=== PATIENT | male | born 1990 | race African-American/Black ===

== ENCOUNTER 2020-08-15 10:29 | Outpatient (REF) | payer BC, SELFPAY | END 2020-08-15 10:30 | disposition home or self-care (01) | LOC: HO.LAB 10:29 | PROVIDERS: Visit Provider Internal Medicine | DX: Z20.828 Contact with and (suspected) exposure to other viral communicable diseases (principal) | CPT/HCPCS: C9803; U0003 ==

== ENCOUNTER 2022-10-03 16:10 | Emergency (ER) | payer OTHER, SELFPAY ==
--- NOTE | ~2022-10-03 | XR_ITS ---
EXAMINATION: XR HAND, LEFT CLINICAL INFORMATION: Wrist pain. Question fracture. COMPARISON: None TECHNIQUE: PA, lateral, and oblique views of the left hand. FINDINGS: No fractures, malalignment, arthropathic changes or soft tissue emphysematous changes visualized. No definitive soft tissue inflammatory changes noted. No abnormalities of the radiocarpal or carpal regions are noted though these areas are viewed with obliquity given that images are dedicated hand radiographs. XR/XR hand LT 2V IMPRESSION: Normal radiographs of the left hand and visualized left wrist. If clinical concern is present specific to the wrist, consider additional dedicated radiographs of the wrist.
[2022-10-03 16:27] VITALS: BP 139/87; PULSE 58; RESP 18; TEMP 36.6; O2SAT 98; BMI 24.1
--- NOTE | 2022-10-03 16:28 | ED_ITS ---
HPI - General Adult General Chief complaint: Extremity Injury, Upper <THOMAS De La Rosa - Last Filed: 10/03/22 18:46> Stated complaint: pain in left wrist <THOMAS De La Rosa - Last Filed: 10/03/22 18:46> Time Seen by Provider: 10/03/22 17:12 <THOMAS De La Rosa - Last Filed: 10/03/22 18:46> Source: patient <Joseph Berry MD - Last Filed: 10/03/22 17:32> Mode of arrival: ambulatory <Joseph Berry MD - Last Filed: 10/03/22 17:32> Limitations: no limitations <Joseph Berry MD - Last Filed: 10/03/22 17:32> History of Present Illness HPI narrative: Patient complaining of left wrist pain for over 2 months says that at work he lift boxes. No direct injury no swelling no paresthesias <Joseph Berry MD - Last Filed: 10/03/22 17:32> Related Data Home medications: Previous Rx's Medication Instructions Recorded ibuprofen 600 mg tablet 600 mg PO Q6H PRN fever or pain 10/03/22 #30 tabs <THOMAS De La Rosa - Last Filed: 10/03/22 18:46> Allergies/adverse reactions: Allergies Allergy/AdvReac Type Severity Reaction Status Date / Time amoxicillin [AMOXICILLIN] Allergy Mild RASH Verified 10/03/22 16:26 <THOMAS De La Rosa - Last Filed: 10/03/22 18:46> Review of Systems Review of Systems: Yes all other systems are reviewed and are negative <Joseph Berry MD - Last Filed: 10/03/22 17:32> [facility] Social History Social History: Social History Advance Directives: No Advance Directives Information Provided: Yes <THOMAS De La Rosa - Last Filed: 10/03/22 18:46> Physical Exam ED Vital Signs: Vital Signs - 24 hr 10/03/22 16:27 Temperature 98 F Pulse Rate 58 Respiratory Rate 18 Blood Pressure 139/87 Pulse Oximetry 98 Oxygen Delivery Method Room Air BMI result Body Mass Index 24.1 <THOMAS De La Rosa - Last Filed: 10/03/22 18:46> Vital Signs - 24 hr 10/03/22 16:27 Temperature 98 F Pulse Rate 58 Respiratory Rate 18 Blood Pressure 139/87 Pulse Oximetry 98 Oxygen Delivery Method Room Air BMI result Body Mass Index 24.1 <Joseph Berry MD - Last Filed: 10/03/22 17:32> Extrem Hand/finger images: 1. Tenderness on the flexor aspect of the wrist increases on palmar flexion Tinel and Phalen sign negative <THOMAS De La Rosa - Last Filed: 10/03/22 18:46> 1. Tenderness on the flexor aspect of the wrist increases on palmar flexion Tinel and Phalen sign negative <Joseph Berry MD - Last Filed: 10/03/22 17:32> Course Course Course Narrative: RME: LEFt wrist pain for one month after trauma at work. wrist was never evaluated. motor, neuro, and vascualr exam is intact on exam. xray ordered <THOMAS De La Rosa - Last Filed: 10/03/22 18:46> Medical Decision Making Medical Decision Making MDM Narrative: X-ray negative clinically tendinitis from overusing his left hand advised to wear the splint ibuprofen for pain <Joseph Berry MD - Last Filed: 10/03/22 17:32> Discharge Plan Discharge Clinical Impression: Sprain and strain of wrist <THOMAS De La Rosa - Last Filed: 10/03/22 18:46> Patient Disposition: Home, Self-Care <THOMAS De La Rosa Last Filed: 10/03/22 18:46> Instructions: Wrist Sprain (ED) <THOMAS De La Rosa Last Filed: 10/03/22 18:46> Additional Instructions: Wear wrist splint for support Avoid lifting heavy boxes Ibuprofen for pain Follow with PCP as needed <THOMAS De La Rosa Last Filed: 10/03/22 18:46> Prescriptions: New ibuprofen 600 mg tablet 600 mg PO Q6H PRN (Reason: fever or pain) Qty: 30 0RF <THOMAS De La Rosa Last Filed: 10/03/22 18:46> Stand Alone Forms: Work/School Release <THOMAS De La Rosa - Last Filed: 10/03/22 18:46> Interventions: ED Discharge Assessment Last Done: 10/03/22 17:42 <THOMAS De La Rosa - Last Filed: 10/03/22 18:46> Discharge Date/Time: 10/03/22 17:42 <THOMAS De La Rosa - Last Filed: 10/03/22 18:46>
--- NOTE | 2022-10-03 17:27 | PC.NURSE ---
wrist splint placed on left wrist pt verbalizes comfort.
== END 2022-10-03 17:42 | disposition home or self-care (01) ==
PROVIDERS: Emergency Provider Internal Medicine
DX: S63.501A Unspecified sprain of right wrist, initial encounter (principal); X50.0XXA Overexertion from strenuous movement or load, initial encounter; X50.9XXA Other and unspecified overexertion or strenuous movements or postures, initial encounter; Y93.9 Activity, unspecified; Y92.9 Unspecified place or not applicable; Y99.0 Civilian activity done for income or pay
CPT/HCPCS: 73120; 99282; 99283

== ENCOUNTER 2022-12-22 14:04 | Emergency (ER) | payer OTHER, SELFPAY ==
--- NOTE | 2022-12-22 | ECG_ITS ---
Test Reason : SYNCOPE Blood Pressure : / mmHG Vent. Rate : 060 BPM Atrial Rate : 060 BPM P-R Int : 188 ms QRS Dur : 092 ms QT Int : 392 ms P-R-T Axes : 048 035 016 degrees QTc Int : 392 ms Normal sinus rhythm Normal ECG When compared with ECG of 13-MAR-2019 00:22, No significant change was found Referred By: Generic ED Physician Electronically Signed By:PETER CHEW MD
[2022-12-22 14:13] VITALS: BP 146/90; PULSE 63; RESP 18; TEMP 36.5; O2SAT 99; BMI 24.4
--- NOTE | 2022-12-22 14:42 | ED.SYNCOPE ---
HPI - Syncope General Chief Complaint: Syncope Stated Complaint: Syncopal episode per EMS Time Seen by Provider: 12/22/22 14:25 Source: patient History of Present Illness HPI narrative: Patient is in the [employer] and had a syncopal event today. 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 He states he felt very hot in his face hands and feet. Coworkers lower him into a chair and then onto the ground. He denies any pain or injuries from the event. Apparently with a relatively short loss of consciousness her bystanders. Currently he has no complaints. 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 He denies palpitations. No headaches No focal weakness No recent changes to medication. Stressors include being in the [employer] and significant workload where he states he has only slept 2-3 hours at night for the last 3-4 days. No recent illnesses. She has 1 prior episode of syncope when he was working at [employer]. He went to [facility] and had a full workup which was apparently negative. They attributed that episode the dehydration and is similar setting of many hours worked daily. No history of dysrhythmias. No family history of sudden of which he is aware. She only has a history of asthma for which he uses Advair or butyrate all on rare occasion. No history of hypertension or cardiac disease. No history of diabetes Related Data Previous Rx's Medication Instructions Recorded ibuprofen 600 mg tablet 600 mg PO Q6H PRN fever or pain 10/03/22 #30 tabs Allergies Allergy/AdvReac Type Severity Reaction Status Date / Time amoxicillin [AMOXICILLIN] Allergy Mild RASH Verified 10/03/22 16:26 Review of Systems Constitutional: Comments: No fever chills or malaise Eyes: Comments: No vision changes Cardiovascular: Comments: . Syncope as mention. No palpitations or chest pain Respiratory: Comments: No dyspnea Gastrointestinal: Comments: And no abdominal pain. He does report nausea prior to the syncopal event Musculoskeletal: Comments: No calf pain or pedal edema Neurologic: Comments: No focal weakness PMFSH Social History Social History Advance Directives: No Advance Directives Information Provided: No Physical Exam Vital Signs: Vital Signs: Last Vital Signs Temp 97.7 F 12/22/22 14:13 Pulse 63 12/22/22 14:13 Resp 18 12/22/22 14:13 BP 146/90 H 12/22/22 14:13 Pulse Ox 99 12/22/22 14:13 O2 Del Method Room Air 12/22/22 14:13 BMI result Body Mass Index 24.4 Const: Other: Awake alert, no acute distress. Vital signs stable with mild hypertension Eyes: Other: Pupils equal round reactive to light, extraocular muscles intact Neck: Other: Supple, full range of motion Chest: Other: Small nontender Resp: Other: Clear and equal bilaterally without wheezes rales or rhonchi Cardio: Other: Regular rate and rhythm without murmurs rubs or gallops GI: Other: Soft nontender nondistended, no pulsatile masses Skin: Other: Warm and dry without rash Neuro: Other: Nonfocal neuro exam Extrem: Other: No calf tenderness or pedal edema Medical Decision Making Medical Decision Making MDM Narrative: Otherwise healthy patient with syncopal episode prior to arrival. Potential etiologies include vasovagal syncope her which patient had consistent prodromal symptoms. Dysrhythmias Hypotension secondary to other cause IHSS For seizure EKG is normal. Patient is on a nurse monitoring in the emergency department with normal sinus rhythm in the 60s without evidence of tachy or Tim dysrhythmia. 16:22. Lab work is largely unremarkable. CBC is normal. Chemistries are normal Transaminases show an AST of 50 but ALT is normal at 37. Total bilirubin is normal. Likely incidental finding but will have patient follow-up with PCP for repeat lab draw in the next 1-2 months. He follow-up with Cardiology as this is patient's 2nd syncopal episode. In the meantime he has had no exercise intolerance or exercise related issues. He is safe to return to full duty and training Lab Data 12/22/22 14:46 12/22/22 14:46 Labs: Lab Results 12/22/22 12/22/22 12/22/22 Range/Units 14:46 14:46 14:46 WBC 5.6 (4.8-10.8) X10*3/uL RBC 4.51 L (4.60-5.80) X10*6/uL Hgb 13.4 L (14.0-18.0) g/dl Hct 40.6 L (42.0-52.0) % MCV 90.0 (80.0-98.0) fL MCH 29.7 (27.0-33.0) pg MCHC 33.0 (31.0-36.0) g/dl RDW 12.1 (11.0-16.0) % Plt Count 233 (160-400) X10*3/uL MPV 11.5 (9.4-12.4) fL Immature Gran % (Auto) 0.0 (0.0-0.4) % Neut % (Auto) 42.5 L (45-73) % Lymph % (Auto) 38.5 (20-40) % Kendall % (Auto) 11.9 H (2-11) % Eos % (Auto) 5.9 H (0-4) % Baso % (Auto) 1.2 (0-2) % Lymph # (Auto) 2.2 (1.2-4.9) X10*3/uL Kendall # (Auto) 0.7 (0.1-1.2) X10*3/uL Eos # (Auto) 0.3 (0.0-0.4) X10*3/uL Baso # (Auto) 0.1 (0.0-0.2) X10*3/uL Abs Immat Gran (auto) 0.00 (0.00-0.03) X10*3/uL Absolute Neuts (auto) 2.4 (2.0-8.3) x10*3/uL Absolute Nucleated RBC 0.000 (0.0-0.012) X10*3/uL Nucleated RBC % (auto) 0.0 (0.0-0.2) /100WBC D-Dimer High Sensitivty < 150 NG/ML Sodium 142 (135-145) mmol/L Potassium 3.6 (3.3-5.1) mmol/L Chloride 109 H (96-108) mmol/L Carbon Dioxide 25 (22-29) mmol/L Anion Gap 12 (12-20) BUN 12 (9-16) mg/dL Creatinine 0.93 (0.5-1.4) mg/dL Estim Creat Clear Calc 131.2 Estimated GFR > 60 Random Glucose 75 (60-115) mg/dL Calcium 8.7 (8.4-10.2) mg/dL Total Bilirubin 0.4 (0.0-1.0) mg/dL AST 50 H (5-37) U/L ALT 37 (0-40) U/L Alkaline Phosphatase 58 (39-117) U/L Troponin I High Sens (<3.5-35.0) ng/L Total Protein 6.8 (6.5-8.0) g/dL Albumin 4.1 (3.5-5.0) g/dL 12/22/22 Range/Units 14:46 WBC (4.8-10.8) X10*3/uL RBC (4.60-5.80) X10*6/uL Hgb (14.0-18.0) g/dl Hct (42.0-52.0) % MCV (80.0-98.0) fL MCH (27.0-33.0) pg MCHC (31.0-36.0) g/dl RDW (11.0-16.0) % Plt Count (160-400) X10*3/uL MPV (9.4-12.4) fL Immature Gran % (Auto) (0.0-0.4) % Neut % (Auto) (45-73) % Lymph % (Auto) (20-40) % Kendall % (Auto) (2-11) % Eos % (Auto) (0-4) % Baso % (Auto) (0-2) % Lymph # (Auto) (1.2-4.9) X10*3/uL Kendall # (Auto) (0.1-1.2) X10*3/uL Eos # (Auto) (0.0-0.4) X10*3/uL Baso # (Auto) (0.0-0.2) X10*3/uL Abs Immat Gran (auto) (0.00-0.03) X10*3/uL Absolute Neuts (auto) (2.0-8.3) x10*3/uL Absolute Nucleated RBC (0.0-0.012) X10*3/uL Nucleated RBC % (auto) (0.0-0.2) /100WBC D-Dimer High Sensitivty NG/ML Sodium (135-145) mmol/L Potassium (3.3-5.1) mmol/L Chloride (96-108) mmol/L Carbon Dioxide (22-29) mmol/L Anion Gap (12-20) BUN (9-16) mg/dL Creatinine (0.5-1.4) mg/dL Estim Creat Clear Calc Estimated GFR Random Glucose (60-115) mg/dL Calcium (8.4-10.2) mg/dL Total Bilirubin (0.0-1.0) mg/dL AST (5-37) U/L ALT (0-40) U/L Alkaline Phosphatase (39-117) U/L Troponin I High Sens < 2.7 (<3.5-35.0) ng/L Total Protein (6.5-8.0) g/dL Albumin (3.5-5.0) g/dL Discharge Plan Discharge Clinical Impression: Vasovagal syncope Patient Disposition: Home, Self-Care Instructions: Syncope (ED) Additional Instructions: Your workup in the emergency department was very reassuring. Follow-up with Cardiology, Dr. Meneses, see contact information and call the office tomorrow for follow-up appointment. Follow-up with your PCP to follow up on your lab work. Your lab work here was essentially normal but 1 liver enzyme was mildly elevated which is probably an incidental finding and temporary. But I recommend you have repeat blood work sometime in the next several months. 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 Prescriptions: No Action ibuprofen 600 mg tablet 600 mg PO Q6H PRN (Reason: fever or pain) Qty: 30 0RF
[2022-12-22 15:01] LABS: MANUAL DIFF FLAG NO
[2022-12-22 15:02] LABS: Basophils Absolute Auto 0.1 X10*3/uL (0.0-0.2); Basophils Percent Auto 1.2 % (0-2); Eosinophils Absolute Auto 0.3 X10*3/uL (0.0-0.4); Eosinophils Percent Auto 5.9 % (0-4); Hematocrit 40.6 % (42.0-52.0); Hemoglobin 13.4 g/dl (14.0-18.0); Lymphocytes Absolute Auto 2.2 X10*3/uL (1.2-4.9); Lymphocytes Percent Auto 38.5 % (20-40); Mean Corpuscular Hemoglobin 29.7 pg (27.0-33.0); Mean Platelet Volume 11.5 fL (9.4-12.4); Monocytes Absolute Auto 0.7 X10*3/uL (0.1-1.2); Monocytes Percent Auto 11.9 % (2-11); Neutrophils Absolute Auto 2.4 x10*3/uL (2.0-8.3); Neutrophils Percent Auto 42.5 % (45-73); Platelet Count 233 X10*3/uL (160-400); Red Blood Count 4.51 X10*6/uL (4.60-5.80); Red Cell Distribution Width 12.1 % (11.0-16.0); White Blood Count 5.6 X10*3/uL (4.8-10.8)
[2022-12-22 15:19] LABS: Alanine Aminotransferase 37 U/L (0-40); Albumin Level 4.1 g/dL (3.5-5.0); Alkaline Phosphatase 58 U/L (39-117); Anion Gap 12 (12-20); Aspartate Amino Transferase 50 U/L (5-37); Bilirubin Total 0.4 mg/dL (0.0-1.0); Blood Urea Nitrogen 12 mg/dL (9-16); Calcium 8.7 mg/dL (8.4-10.2); Carbon Dioxide 25 mmol/L (22-29); Chloride 109 mmol/L (96-108); Creatinine Clr Calc Pharmacy 131.2; Estimated Glomerular Filt Rate > 60; Glucose Random 75 mg/dL (60-115); Potassium 3.6 mmol/L (3.3-5.1); Sodium 142 mmol/L (135-145); Total Protein 6.8 g/dL (6.5-8.0)
[2022-12-22 15:29] LABS: Troponin-I High Sensitivity < 2.7 ng/L (<3.5-35.0)
[2022-12-22 15:31] LABS: D Dimer High Sensitivity < 150 NG/ML
== END 2022-12-22 16:41 | disposition home or self-care (01) ==
PROVIDERS: Emergency Provider Emergency Medicine
DX: R55 Syncope and collapse (principal)
CPT/HCPCS: 36415; 80053; 84484; 85025; 85379; 93005; 99283

== ENCOUNTER 2022-12-24 03:56 | Emergency (ER) | payer OTHER, SELFPAY ==
--- NOTE | ~2022-12-24 | XR_ITS ---
EXAMINATION: XR foot RT min 3V, XR ankle RT min 3V CLINICAL INFORMATION: Reason for Exam injury COMPARISON: None. TECHNIQUE: AP, oblique and lateral views of the right ankle and foot (5 images) FINDINGS: No acute fracture or dislocation. Ankle mortise is congruent. Talar dome intact. No suspicious osseous lesions. Soft tissues unremarkable. XR/XR ankle RT min 3V IMPRESSION: No acute fracture or dislocation.
--- NOTE | ~2022-12-24 | XR_ITS ---
EXAMINATION: XR foot RT min 3V, XR ankle RT min 3V CLINICAL INFORMATION: Reason for Exam injury COMPARISON: None. TECHNIQUE: AP, oblique and lateral views of the right ankle and foot (5 images) FINDINGS: No acute fracture or dislocation. Ankle mortise is congruent. Talar dome intact. No suspicious osseous lesions. Soft tissues unremarkable. XR/XR foot RT min 3V IMPRESSION: No acute fracture or dislocation.
[2022-12-24 04:11] VITALS: BP 134/89; PULSE 60; RESP 18; TEMP 36.3; O2SAT 97; BMI 25.2
[2022-12-24 04:28] VITALS: BP 142/92; PULSE 61; RESP 17; TEMP 36.6; O2SAT 97
[2022-12-24 06:15] VITALS: BP 126/86; PULSE 72; RESP 17; TEMP 36.7; O2SAT 100
--- NOTE | 2022-12-24 07:03 | ED_ITS ---
HPI - Extremity Injury (Lower) General Chief Complaint: Extremity Injury, Lower Stated Complaint: R Ankle Pain Time Seen by Provider: 12/24/22 06:55 Source: patient Mode of arrival: ambulatory Limitations: no limitations History of Present Illness HPI Narrative: 32-year-old male who presents emergency department for evaluation of pain in his right Achilles tendon region. 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 He states that a pallet robson struck his right leg and his right leg was caught between a robson and palate. He states that he recovered from this injury. Patient is currently in a today at in the [employer]. He states that he was doing [employer] and ran a mi and a half yesterday. He did not have any injury but he did notice swelling to the medial aspect of his Achilles tendon. When he woke up this morning he states that he is having difficulty walking secondary to pain in his Achilles tendon. Related Data Previous Rx's Medication Instructions Recorded ibuprofen 600 mg tablet 600 mg PO Q6H PRN fever or pain 10/03/22 #30 tabs acetaminophen 500 mg tablet 1,000 mg PO Q6H PRN fever or pain 12/24/22 (Tylenol Extra Strength) #20 tabs ibuprofen 400 mg tablet 400 mg PO TID PRN fever or pain 12/24/22 #30 tabs Allergies Allergy/AdvReac Type Severity Reaction Status Date / Time amoxicillin [AMOXICILLIN] Allergy Mild RASH Verified 10/03/22 16:26 Review of Systems Review of Systems: Yes all other systems are reviewed and are negative PMFSH Social History Social History Advance Directives: No Advance Directives Information Provided: Yes Physical Exam Vital Signs: Vital Signs: Last Vital Signs Temp 98.0 F 12/24/22 06:15 Pulse 72 12/24/22 06:15 Resp 17 12/24/22 06:15 BP 126/86 12/24/22 06:15 Pulse Ox 100 12/24/22 06:15 O2 Del Method Room Air 12/24/22 06:15 BMI result Body Mass Index 25.2 Vital signs normal General: Awake, alert, male patient, very pleasant cooperative, no distress Right lower extremity exam: Patient has no tenderness palpation of his foot or medial lateral malleolus. There is no joint effusion, there is no ecchymosis or erythema. The patient's Achilles tendon is intact, he does have tenderness with palpation of the did aspect of the tendon, there is no tenderness palpation of the right calf. There is no swelling or ecchymosis of the calf for tendon noted Medical Decision Making Medical Decision Making MDM Narrative: 32-year-old male who presents emergency department for evaluation of pain in his right ankle/Achilles tendon area. 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 He also participated in [employer] physical training. He was unable walk this morning secondary to pain. Examination did reveal tenderness palpation of the right Achilles tendon without any other findings. X-rays of his right ankle and foot revealed no acute fracture. Patient's presentation is consistent with a sprain of the right Achilles tendon. The patient was placed in a walking boot given crutches. He was prescribed Tylenol and ibuprofen. Patient was advised to rest his injured Achilles tendon for 3 days and if he is pain for you can return to the [employer] on 12/27/2022. Differential Diagnosis Differential diagnosis includes was not limited to Achilles tendon sprain, Achilles tendon tear, ankle sprain, foot sprain, ankle fracture foot fracture, Radiology Impression Discussion of test interpretation with radiology: I have reviewed the radiologist's reading. Radiologist Impression: XR ankle RT min 3V IMPRESSION: No acute fracture or dislocation. Dictated By:Jefferson Day MD XR foot RT min 3V IMPRESSION: No acute fracture or dislocation. Dictated By:Jefferson Day MD Discharge Plan Discharge Clinical Impression: Strain of right Achilles tendon, initial encounter Patient Disposition: Home, Self-Care Instructions: R.I.C.E. Treatment (ED) Additional Instructions: The x-ray of your right foot and right ankle revealed no broken bones Your examination is consistent with a strain of your Achilles tendon. Wear the walking boot in use the crutches to relieve pressure on your right foot and ankle for the next 3 days. Follow the RICE instruction Take ibuprofen 200 mg pills, 2 pills every 6 hours as needed for pain. Take Tylenol (acetaminophen) 500 mg pills, 2 pills every 6 hours as needed for pain. Follow-up with your doctor in 2 days. Please return to the emergency department if your symptoms get worse or if you develop any symptoms that are concerning to you. Prescriptions: New acetaminophen [Tylenol Extra Strength] 500 mg tablet 1,000 mg PO Q6H PRN (Reason: fever or pain) Qty: 20 0RF ibuprofen 400 mg tablet 400 mg PO TID PRN (Reason: fever or pain) Qty: 30 0RF No Action ibuprofen 600 mg tablet 600 mg PO Q6H PRN (Reason: fever or pain) Qty: 30 0RF Stand Alone Forms: Work/School Release
[2022-12-24 07:19] VITALS: BP 132/86; PULSE 57; RESP 14; O2SAT 95
[2022-12-24] MEDS: Ibuprofen 400 MG TABLET PO (07:36)
== END 2022-12-24 07:44 | disposition home or self-care (01) ==
PROVIDERS: Emergency Provider Emergency Medicine Emergency Medical Services
DX: S86.011A Strain of right Achilles tendon, initial encounter (principal); M79.671 Pain in right foot; X50.0XXA Overexertion from strenuous movement or load, initial encounter; Y93.9 Activity, unspecified; Y92.9 Unspecified place or not applicable; Y99.0 Civilian activity done for income or pay; Z79.899 Other long term (current) drug therapy
CPT/HCPCS: 73610; 73630; 99283

== ENCOUNTER → 2022-12-27 12:30 | Outpatient (BNVA) | payer OTHER, SELFPAY | PROVIDERS: Visit Provider Physician Assistant Medical | DX: S86.011A Strain of right Achilles tendon, initial encounter (principal); Y93.02 Activity, running | CPT/HCPCS: 99202 ==

== ENCOUNTER 2023-04-02 20:06 | Emergency (ER) | payer OTHER, SELFPAY ==
--- NOTE | ~2023-04-02 | XR_ITS ---
EXAMINATION: XR LUMBAR SPINE CLINICAL INFORMATION: Low back pain, spine tenderness COMPARISON: 05/29/2013 TECHNIQUE: Three views of the lumbar spine. FINDINGS: There is transitional segment anatomy with partial lumbarization of S1. There is anatomic alignment of the lumbar vertebral bodies and posterior elements. Vertebral body heights are maintained. There is disc space narrowing at L5-S1 with associated osteophytosis. Remaining intervertebral disc spaces are maintained. No acute fracture is seen. Sacroiliac joints appear intact. XR/XR lumbar spine 2-3V IMPRESSION: No acute findings identified. Degenerative changes at L5-S1.
[2023-04-02 20:27] VITALS: BP 145/100; PULSE 75; RESP 18; TEMP 36.6; O2SAT 95; BMI 25.7
--- NOTE | 2023-04-02 20:28 | ED.BACK ---
HPI - Back Pain/Injury General Chief Complaint: Back Pain/Injury Stated Complaint: lower back pain/cant sit Time Seen by Provider: 04/02/23 21:45 Source: patient Mode of arrival: ambulatory Limitations: no limitations History of Present Illness HPI Narrative: 33 yo male with history of asthma and eczema who presents to the ER for evaluation of low back pain for the last 3 days. 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 Started when he was in the truck for 14 hours 3 days ago. Difficulty standing, sitting, walking. Intermittent numbness and weakness to LLE. No urinary symptoms, saddle paresthsias. No urinary or stool incontinence, able to ambulate with difficulty due to pain but no weakness. Patient had chronic low back pain but not that severe. Related Data Previous Rx's Medication Instructions Recorded ibuprofen 600 mg tablet 600 mg PO Q6H PRN fever or pain 10/03/22 #30 tabs acetaminophen 500 mg tablet 1,000 mg PO Q6H PRN fever or pain 12/24/22 (Tylenol Extra Strength) #20 tabs ibuprofen 400 mg tablet 400 mg PO TID PRN fever or pain 12/24/22 #30 tabs cyclobenzaprine 10 mg tablet 10 mg PO BEDTIME PRN muscle spasm 04/02/23 #10 tabs ibuprofen 600 mg tablet 600 mg PO Q8H PRN pain #10 tabs 04/02/23 oxycodone 5 mg tablet 5 mg PO BID PRN pain #10 tabs 04/02/23 Allergies Allergy/AdvReac Type Severity Reaction Status Date / Time amoxicillin [AMOXICILLIN] Allergy Mild RASH Verified 10/03/22 16:26 Review of Systems Review of Systems: All other systems are reviewed and are negative Constitutional: Reports as per HPI and Reports no additional constitutional complaints Eyes: Reports as per HPI and Reports no additional eye complaints Reports system reviewed and no additional complaints, except as documented Cardiovascular: Reports as per HPI and Reports no additional cardiovascular complaints Respiratory: Reports as per HPI and Reports no additional respiratory complaints Gastrointestinal: Reports as per HPI and Reports no additional gastrointestinal complaints Genitourinary: Reports no additional female genitourinary complaints Musculoskeletal: Reports no additional musculoskeletal complaints Skin/Breast: Reports system reviewed and no additional complaints, except as docu Psychiatric: Reports no additional psychiatric complaints Endocrine: Reports no additional endocrine complaints Hematologic/Lymphatic: Reports no additional hematologic/lymphatic complaints Allergic/Immunologic: Reports no additional allergic/immunologic complaints Reports system reviewed and no additional complaints, except as documented and Reports Abnormal speech present [facility] Social History Social History Advance Directives: No Advance Directives Information Provided: No Physical Exam Vital Signs: Vital Signs: Last Vital Signs Temp 97.8 F 04/02/23 20:27 Pulse 75 04/02/23 20:27 Resp 18 04/02/23 20:27 BP 145/100 H 04/02/23 20:27 Pulse Ox 95 04/02/23 20:27 O2 Del Method Room Air 04/02/23 20:27 BMI result Body Mass Index 25.7 Vital signs have been reviewed as appeared to be correct. Blood pressure normal. Heart rate normal. Respiration rate normal. Temperature normal. Oxygen saturation normal. Appearance: Alert. Oriented X3. No acute distress. Head: Normal external exam. Normocephalic. Atraumatic. No [place] signs noted. No raccoon eyes noted Eyes: PERRLA. EOMI. Conjunctiva and sclera normal. Eyelids normal. ENT: TM's Normal. Pharynx normal. Uvula midline. Moist mucous membranes. No trismus noted. No drooling noted. No muffled voice noted. Neck: Normal inspection. Neck supple. FROM. No adenopathy. Thyroid Normal. No meningeal signs. No neck mass noted. CVS: Normal heart rate and rhythm. Heart sound normal. No murmurs noted. Pulses normal throughout. Respiratory: No respiratory distress. Painless inspiration. Breath sounds normal. No wheezes/rales/rhonchi noted. Chest nontender. No accessory muscle usage noted or decreased air movement noted. Abdomen: Soft and nontender. Bowel sounds normal in all 4 quadrants. No distention noted. No organomegaly noted. No visible injury noted. Back: No CVA tenderness. Full range of motion noted. Skin: Skin warm and dry. Normal skin color. Normal skin turgor. No rashes/lesions/lacerations noted. Extremities: No lower extremity edema. Extremities exhibit normal range of motion. Extremities nontender. Neuro: Oriented X 3. Cranial nerve exam: II-XII are grossly intact No motor deficit. No sensory deficit. Reflexes normal. Able to ambulate on both heels and toes. Course Course Course Narrative: E - 33 yo male with history of asthma and eczema who presents to the ER for evaluation of low back pain for the last 3 days. 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 Difficulty standing, sitting, walking. Intermittent numbness and weakness to LLE. No urinary symptoms, saddle paresthsias. Plan: xr lumbar spine due to midline tenderness, medicate and reassess. Reevaluation(s) Reevaluation #1: Feels better after was given pain medication and NSAIDs, patient was instructed to rest for 2 days with applying heating pad and muscle relaxant. Time: 22:45 Medications Administered Discontinued Medications Generic Name Dose Route Start Last Admin Trade Name Freq PRN Reason Stop Dose Admin Cyclobenzaprine HCl 10 mg 04/02/23 22:03 04/02/23 22:07 Cyclobenzaprine Hcl 10 Mg Tablet PO 04/02/23 22:04 10 mg ONCE ONE Administration Cyclobenzaprine HCl 10 mg 04/02/23 22:11 04/02/23 22:20 Cyclobenzaprine Hcl 10 Mg Tablet PO 04/02/23 22:12 Not Given ONCE ONE Ibuprofen 800 mg 04/02/23 22:03 04/02/23 22:07 Ibuprofen 800 Mg Tablet PO 04/02/23 22:04 800 mg ONCE ONE Administration Medical Decision Making Differential Diagnosis Differential Diagnoses: The differential diagnosis associated with the presentation includes (Lumbar radiculopathy, neurological deficit, cauda equina, muscle spasm.) Admission/Observation Consideration of admission/observation: Escalation of care including admission/observation considered Independent Interpretation I performed an independent interpretation of an: Plain X-Ray (Lumbar spine x-ray: No acute fracture or subluxation.) Radiology Impression Discussion of test interpretation with radiology: I have reviewed the radiologist's reading. 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 He should talk to your employer to get light duty job to accommodate your back pain. Use ibuprofen as prescribed with muscle relaxant and apply heating pad. Prescriptions: New ibuprofen 600 mg tablet 600 mg PO Q8H PRN (Reason: pain) Qty: 10 0RF oxycodone 5 mg tablet 5 mg PO BID PRN (Reason: pain) Qty: 10 0RF Rx Instructions: Partial Fill upon patient request. cyclobenzaprine 10 mg tablet 10 mg PO BEDTIME PRN (Reason: muscle spasm) Qty: 10 0RF No Action ibuprofen 600 mg tablet 600 mg PO Q6H PRN (Reason: fever or pain) Qty: 30 0RF acetaminophen [Tylenol Extra Strength] 500 mg tablet 1,000 mg PO Q6H PRN (Reason: fever or pain) Qty: 20 0RF ibuprofen 400 mg tablet 400 mg PO TID PRN (Reason: fever or pain) Qty: 30 0RF Stand Alone Forms: Work/School Release
[2023-04-02] MEDS: Ibuprofen 800 MG TABLET PO (22:07)
[2023-04-02] MEDS: Cyclobenzaprine HCl 10 MG TABLET PO (22:07)
[2023-04-02 23:51] VITALS: BP 133/85; PULSE 60; RESP 16; TEMP 36.4; O2SAT 98
== END 2023-04-03 00:37 | disposition home or self-care (01) ==
PROVIDERS: Emergency Provider Emergency Medicine
DX: S39.012A Strain of muscle, fascia and tendon of lower back, initial encounter (principal); X58.XXXA Exposure to other specified factors, initial encounter; M54.16 Radiculopathy, lumbar region; Y93.9 Activity, unspecified; Y92.9 Unspecified place or not applicable; Y99.9 Unspecified external cause status
CPT/HCPCS: 72100; 99283

== ENCOUNTER 2023-10-08 13:52 | Emergency (ER) | payer BC, OTHER, SELFPAY ==
--- NOTE | ~2023-10-08 | US_ITS ---
EXAMINATION: US SCROTUM CLINICAL INFORMATION: Difficulty urinating.. COMPARISON: None available. TECHNIQUE: A sonogram of the scrotum was performed assessing holman-scale appearance and color Doppler flow. Spectral Doppler analysis of the arterial and venous flow were performed in the testes bilaterally. FINDINGS: RIGHT: Right testicle measures 4.8 x 2.3 x 3.2 cm. cm, volume 18.5 mL. No focal testicular parenchymal lesions are visualized. Spectral Doppler analysis of the arterial and venous flow is normal in the right testis. Right epididymal head is normal in size. No right hydrocele or varicocele is seen. Right epididymal Doppler flow is normal. LEFT: Left testicle measures 5.1 x 2.2 x 2.9 cm, volume 17 mL. No focal testicular parenchymal lesions are visualized. Spectral Doppler analysis of the arterial and venous flow is normal in the left testis. Left epididymal head is normal in size. There is no left-sided hydrocele. There is a small left-sided varicocele. Left epididymal Doppler flow is normal. US/US scrotum doppler IMPRESSION: 1. Normal ultrasound of the right and left testicle. 2. Small left-sided varicocele.
--- NOTE | ~2023-10-08 | US_ITS ---
EXAMINATION: US SCROTUM CLINICAL INFORMATION: Difficulty urinating.. COMPARISON: None available. TECHNIQUE: A sonogram of the scrotum was performed assessing holman-scale appearance and color Doppler flow. Spectral Doppler analysis of the arterial and venous flow were performed in the testes bilaterally. FINDINGS: RIGHT: Right testicle measures 4.8 x 2.3 x 3.2 cm. cm, volume 18.5 mL. No focal testicular parenchymal lesions are visualized. Spectral Doppler analysis of the arterial and venous flow is normal in the right testis. Right epididymal head is normal in size. No right hydrocele or varicocele is seen. Right epididymal Doppler flow is normal. LEFT: Left testicle measures 5.1 x 2.2 x 2.9 cm, volume 17 mL. No focal testicular parenchymal lesions are visualized. Spectral Doppler analysis of the arterial and venous flow is normal in the left testis. Left epididymal head is normal in size. There is no left-sided hydrocele. There is a small left-sided varicocele. Left epididymal Doppler flow is normal. US/US scrotum IMPRESSION: 1. Normal ultrasound of the right and left testicle. 2. Small left-sided varicocele.
[2023-10-08 14:04] VITALS: BP 148/102; PULSE 70; RESP 19; TEMP 36.6; O2SAT 97; BMI 27.3
--- NOTE | 2023-10-08 14:04 | ED_ITS ---
[facility] - General Adult General Chief complaint: Urogenital-Male Stated complaint: groin pain and rash Time Seen by Provider: 10/08/23 14:36 Source: patient Mode of arrival: ambulatory History of Present Illness HPI narrative: 33-year-old male who presents with complaints of pain that starts at the base of his penis and radiates distally to the tip but denies any discharge. Patient denies any difficulty with urination, fevers, chills but also reports some dryness of the shaft of the penis as well as areas of dry patchiness along his trunk. The dry patchy areas on the trunk of his body have been ongoing now for over 1 month. Related Data Previous Rx's Medication Instructions Recorded ibuprofen 600 mg tablet 600 mg PO Q6H PRN fever or pain 10/03/22 #30 tabs acetaminophen 500 mg tablet 1,000 mg (2 x 500 mg) PO Q6H PRN 12/24/22 (Tylenol Extra Strength) fever or pain #20 tabs ibuprofen 400 mg tablet 400 mg PO TID PRN fever or pain 12/24/22 #30 tabs cyclobenzaprine 10 mg tablet 10 mg PO BEDTIME PRN muscle spasm 04/02/23 #10 tabs ibuprofen 600 mg tablet 600 mg PO Q8H PRN pain #10 tabs 04/02/23 oxycodone 5 mg tablet 5 mg PO BID PRN pain #10 tabs 04/02/23 Allergies Allergy/AdvReac Type Severity Reaction Status Date / Time amoxicillin [AMOXICILLIN] Allergy Mild RASH Verified 10/03/22 16:26 Review of Systems Review of Systems: Pertinent positives and negatives as stated in [facility] Past Medical History Source: nursing notes reviewed Onset Date is defined in the Problem List Problems that require an onset date and time if occurred within 24 hrs of arrival to the ED Aortic Dissection and Rupture; Neurologic impairment; Cardiopulmonary Arrest; Endotracheal Intubation; Insertion or Replacement of Mechanical Circulatory Assist Device Social History Social History Smoked in Last 30 Days: No Use of substances other than those prescribed or required for medical reasons: No Advance Directives: No Advance Directives Information Provided: No Physical Exam ED Vital Signs: Vital Signs - 24 hr 10/08/23 14:04 10/08/23 16:04 Temperature 97.9 F 97.5 F Pulse Rate 70 60 Respiratory Rate 19 16 Blood Pressure 148/102 H 131/88 Pulse Oximetry 97 97 Oxygen Delivery Method Room Air Room Air BMI result Body Mass Index 27.3 VITAL SIGNS: Reviewed. GENERAL: Well developed, well nourished, in no acute distress. HEAD: Normocephalic/atraumatic EYES: PERRLA, EOMI LUNGS: Normal breath sounds. No adventitious sounds or accessory muscle use. SpO2<97> CARDIOVASCULAR: Regular rate and rhythm without noted murmurs ABDOMEN: Soft, non-tender, non-distended with bowel sounds. : [[employer]] circumcised male, no abnormal lesions/ulcerations noted along the penile shaft, no discharge noted, skin is noted to be mildly dry but no eczematous patchy lesions appreciated MUSCULOSKELETAL: No tenderness, deformities, or effusions noted on gross inspection. EXTREMITIES: No cyanosis, clubbing or edema. SKIN: Inspection of the skin reveals no rashes, dry patchy areas located across the trunk to include the axilla NEUROLOGIC: Alert and oriented x 4. Strength and sensation to light touch were grossly intact x 4. Course Course Course Narrative: This is a rapid medical exam: Additional HPI, ROS, PE not included below will be deferred to primary provider. Patient is a 33-year-old male presenting to the ED with testicular pain since this morning as well as rash to trunk for months. Reports some difficulty urinating, denies any penile discharge. Feels unable to empty bladder. Denies testicular swelling, rash. Denies nausea. Unable to sit in triage due to discomfort. Area not visualized in triage due to privacy concerns. Denies known history of DM. History of testicular torsion as a child, does not believe he had any surgical procedures related to this. Plan: UA, CT NG urine, ultrasound Medical Decision Making Medical Decision Making MDM Narrative: 33-year-old male with history and clinical presentation of suspected eczema along the trunk of his body some mild areas of dry patchy skin on extremities as well. I reviewed all investigations and no evidence chlamydia/gonorrhea infection, testicular ultrasound does not demonstrate any evidence to suggest torsion, there are no findings or history to suggest epididymitis. Urinalysis negative for UTI or hematuria. I discussed all results with the patient at bedside, we have reviewed treatment for eczema, the need for him to follow-up with his primary care doctor and the fact that I would provide him with a Urologic referral to further evaluate the timing in distribution the penile pain. It does not appear to occur on initiation of tumescence, there is no obvious trauma, he denies any sexual activities involving foreign objects being inserted into his urethra. Differential Diagnosis Differential Diagnoses: The differential diagnosis associated with the presentation includes Please see the discussion above Admission/Observation Consideration of admission/observation: Escalation of care including admissio n/observation considered Please see the discussion above Lab Data MDM Lab Attestation statement: I reviewed the patient's lab results. Please see the discussion above Labs: Lab Results 10/08/23 Range/Units 14:32 Urine Color Yellow Urine Appearance Clear Urine pH 6.0 (5.0-9.0) Ur Specific [place] 1.025 (1.005-1.025) Urine Protein Negative (Neg-Trace) mg/dL Urine Glucose (UA) Negative (Negative) mg/dL Urine Ketones Negative (Negative) mg/dL Urine Blood Negative (Negative) Urine Nitrite Negative (Negative) Ur Leukocyte Esterase Negative (Negative) Chlam trachomat DNA PCR NOT DETECTED (Not Detect.) N.gonorrhoeae DNA (PCR) NOT DETECTED (Not Detect.) Radiology Impression Discussion of test interpretation with radiology: I have reviewed the radiologist's reading. Radiologist Impression: Please see the discussion above Discharge Plan Discharge Clinical Impression: Eczema, Penile pain Patient Disposition: Home, Self-Care Instructions: Eczema (ED) Additional Instructions: 1. Please review the information regarding eczema: Specifically less frequent showers, lower temperature on the water used for showers, recommend [id number] Cetaphil and/or liquid dove, after showering it is very important that you use eczema lotion or petroleum jelly (Vaseline). 2. A referral has been provided to you below for Urology and you should call the office on Tuesday morning. 3. Please follow-up with your primary care doctor at your earliest convenience. Return to the ER for any worsening symptoms. Prescriptions: No Action ibuprofen 600 mg tablet 600 mg PO Q6H PRN (Reason: fever or pain) Qty: 30 0RF acetaminophen [Tylenol Extra Strength] 500 mg tablet 1,000 mg PO Q6H PRN (Reason: fever or pain) Qty: 20 0RF ibuprofen 400 mg tablet 400 mg PO TID PRN (Reason: fever or pain) Qty: 30 0RF ibuprofen 600 mg tablet 600 mg PO Q8H PRN (Reason: pain) Qty: 10 0RF oxycodone 5 mg tablet 5 mg PO BID PRN (Reason: pain) Qty: 10 0RF Rx Instructions: Partial Fill upon patient request. cyclobenzaprine 10 mg tablet 10 mg PO BEDTIME PRN (Reason: muscle spasm) Qty: 10 0RF Referrals: Blair Martinez MD [Physician] -
[2023-10-08 14:41] LABS: Appearance Urine Clear; Color Urine Yellow; Glucose Urine UA Negative (Negative); Leukocyte Esterase Urine Negative (Negative); Nitrite Urine Negative (Negative); Specific Gravity - Urine 1.025 (1.005-1.025); Urine Blood Negative (Negative); Urine Ketones Negative (Negative); Urine Protein Negative (Neg-Trace)
[2023-10-08 16:04] VITALS: BP 131/88; PULSE 60; RESP 16; TEMP 36.4; O2SAT 97
--- NOTE | 2023-10-08 16:10 | PC.NURSE ---
vss and up to date at this time. pt continues to wait for ultrasound results at this time. respirations remain even and unlabored. resting comfortably w/ the lights dimmed. call james placed within reach.
[2023-10-08 16:16] LABS: CT PCR NOT DETECTED (Not Detect.); NG PCR NOT DETECTED (Not Detect.)
--- NOTE | 2023-10-08 16:39 | PC.NURSE ---
pt seen by ED provider/aware of plan of care at this time.
== END 2023-10-08 17:04 | disposition home or self-care (01) ==
PROVIDERS: Registered Nurse Emergency; Emergency Provider Student in an Organized Health Care Education/Training Program
DX: N48.89 Other specified disorders of penis (principal); L30.9 Dermatitis, unspecified; R39.14 Feeling of incomplete bladder emptying
CPT/HCPCS: 0353U; 76870; 81003; 93975; 99284

== ENCOUNTER 2023-11-12 12:13 | Emergency (ER) | payer BC, OTHER, SELFPAY ==
--- NOTE | ~2023-11-12 | XR_ITS ---
EXAMINATION: XR KNEE, LEFT CLINICAL INFORMATION: Trauma. Pain. COMPARISON: None available. TECHNIQUE: Four views of the left knee. FINDINGS: No fracture or joint effusion. Alignment is anatomic. Joint spaces are maintained. No abnormal soft tissue calcification. XR/XR knee LT 4V IMPRESSION: Normal left knee.
[2023-11-12 12:20] VITALS: BP 135/86; PULSE 62; RESP 18; TEMP 36.8; O2SAT 98; BMI 27.9
--- NOTE | 2023-11-12 12:21 | ED.EXTPRO ---
HPI - Extremity Problem General Chief complaint: Extremity Injury, Lower Stated complaint: knee pain Time Seen by Provider: 11/12/23 13:26 Source: patient Mode of arrival: ambulatory Limitations: no limitations History of Present Illness HPI Narrative: 33 yo male here with left knee pain after he hyperextended his knee playing basketball 2 weeks ago. Pain radiates down the lower leg. No swelling, redness, numbness, tingling or weakness of the extremity. No known previous injury to the extremity. Related Data Previous Rx's Medication Instructions Recorded ibuprofen 600 mg tablet 600 mg PO Q6H PRN fever or pain 10/03/22 #30 tabs acetaminophen 500 mg tablet 1,000 mg (2 x 500 mg) PO Q6H PRN 12/24/22 (Tylenol Extra Strength) fever or pain #20 tabs ibuprofen 400 mg tablet 400 mg PO TID PRN fever or pain 12/24/22 #30 tabs cyclobenzaprine 10 mg tablet 10 mg PO BEDTIME PRN muscle spasm 04/02/23 #10 tabs ibuprofen 600 mg tablet 600 mg PO Q8H PRN pain #10 tabs 04/02/23 oxycodone 5 mg tablet 5 mg PO BID PRN pain #10 tabs 04/02/23 Allergies Allergy/AdvReac Type Severity Reaction Status Date / Time amoxicillin [AMOXICILLIN] Allergy Mild RASH Verified 11/12/23 12:20 Review of Systems Review of Systems: Yes all other systems are reviewed and are negative Constitutional: Constitutional: Reports no additional constitutional complaints, Denies body ache(s), Denies chills, Denies fever(s), Denies headache(s) and Denies weakness Eyes: Eyes: Reports no additional eye complaints and Denies change in vision ENT: Reports system reviewed and no additional complaints, except as documented, Denies dizziness, Denies headache(s), Denies nasal congestion, Denies nasal discharge and Denies neck pain Cardiovascular: Cardiovascular: Reports no additional cardiovascular complaints, Denies chest pain, Denies leg edema and Denies dyspnea Respiratory: Respiratory: Reports no additional respiratory complaints, Denies cough and Denies dyspnea Gastrointestinal: Gastrointestinal: Reports no additional gastrointestinal complaints, Denies abdominal pain, Denies diarrhea, Denies nausea and Denies vomiting Genitourinary: Genitourinary: Denies urinary incontinence Musculoskeletal: Musculoskeletal: Reports no additional musculoskeletal complaints, Denies back pain, Reports arthralgias, Denies joint swelling, Denies limited range of motion, Denies neck pain, Denies numbness and Denies tingling Integumentary/Breasts: Skin/Breast: Reports system reviewed and no additional complaints, except as docu and Denies rash Neurologic: Reports system reviewed and no additional complaints, except as documented, Denies Abnormal speech present, Denies dizziness, Denies headache(s), Denies numbness, Denies tingling and Denies weakness PMFSH Past Medical History Attestation statement: The following information was validated with the patient. Source: old records reviewed and nursing notes reviewed Social History Social History Advance Directives: No Advance Directives Information Provided: No Physical Exam Vital Signs: Vital Signs: Last Vital Signs Temp 98.2 F 11/12/23 12:20 Pulse 62 11/12/23 12:20 Resp 18 11/12/23 12:20 BP 135/86 11/12/23 12:20 Pulse Ox 98 11/12/23 12:20 O2 Del Method Room Air 11/12/23 12:20 BMI result Body Mass Index 27.9 Const: General: cooperative, healthy appearing, comfortable and no acute distress Orientation/consciousness: patient oriented x3 Limitations: no limitations HEENT: Head: Yes normal to inspection Ears: hearing grossly normal bilaterally General nose exam: Normal external nose present Face and sinus: Yes normal facial exam Mouth: Normal oral and palatal mucosa present Throat: Yes posterior oropharynx normal Eyes: General: appearance normal, both eyes and all related structures Pupils: Equal, round and reactive pupils present Neck: Neck: Yes normal visual inspection Chest: Chest palpation & inspection: normal inspection of the chest Resp: Effort & Inspection: normal respiratory effort Auscultation: clear to auscultation bilaterally Cardio: Rate: regular rate Rhythm: regular rhythm Peripheral pulses: Peripheral pulses 2+ throughout GI: Inspection: Yes normal to inspection Palpation (GI): Soft to palpation and nontender Auscultation: normal bowel sounds Back/Spine/Pelvis: Thoracic/Lumbar Spine: thoracic and lumbar spine normal to inspection Skin: General skin exam: no rashes or lesions noted Neuro: General: patient oriented x3, no focal motor deficits and normal sensation to monofilament Cranial nerves: Yes Equal, round and reactive pupils present Cognition (Neuro): normal cognition Speech: No Abnormal speech present Gait exam (Neuro): Normal gait present Motor exam (neuro): 5/5 motor strength present throughout Extrem: Other: no pain on palpation. Full active and passive range of motion of the left knee. No ligamental laxity. Normal DP and PT pulses distally. Normal sensation distally. General: Yes normal to inspection Course Course Course Narrative: This is an RME: Additional HPI, ROS, PE not included below will be deferred to primary provider. Patient is a 33-year-old male presents emergency department for evaluation of left knee pain x2 weeks. Reports he was playing basketball and he thought he may have ?hyperextended?. Pain has persisted and is now radiating down to the calf/foot. Reports hx tendonitis to this knee. Pain unrelieved by ibuprofen/acetaminophen. Plan: XR Reevaluation(s) Reevaluation #1: x-ray show no acute fracture. Likely sprain. Recommend Pollo wrap and crutches for home. Reviewed rice. Reviewed worrisome signs and symptoms of when to return to the emergency room. Comfortable plan for discharge home. Medical Decision Making Medical Decision Making MDM Narrative: 33 yo male here with left knee pain after he hyperextended his knee playing basketball 2 weeks ago. Pain radiates down the lower leg. No swelling, redness, numbness, tingling or weakness of the extremity. No known previous injury to the extremity. no pain on palpation. Full active and passive range of motion of the left knee. No ligamental laxity. Normal DP and PT pulses distally. Normal sensation distally. Will check x-rays Differential Diagnosis Differential Diagnoses: The differential diagnosis associated with the presentation includes Sprain, strain, ligamental injury low concern for fracture, dislocation or vascular injury Admission/Observation Consideration of admission/observation: Escalation of care including admission/observation considered low concern for complex fracture, dislocation or vascular injury requiring advanced imaging urgent orthopedic consultation Independent Interpretation I performed an independent interpretation of an: Plain X-Ray Interpretation: I independently reviewed the x-ray and agree with the radiology report Radiology Impression Discussion of test interpretation with radiology: I have reviewed the radiologist's reading. Radiologist Impression: [address] [address] XRay Report Signed Patient: Naveed Kearns MR#: [id number] : 1990 Acct:[id number] Age/Sex: 33 / M ADM Date: 11/12/23 Loc: HO.ED Attending Dr: Ordering Physician: Micaela Patten CNP Date of Service: 11/12/23 Procedure(s): XR knee LT 4V Accession Number(s): [id number] cc: Micaela Patten CNP; Physician,None ~ EXAMINATION: XR KNEE, LEFT CLINICAL INFORMATION: Trauma. Pain. COMPARISON: None available. TECHNIQUE: Four views of the left knee. FINDINGS: No fracture or joint effusion. Alignment is anatomic. Joint spaces are maintained. No abnormal soft tissue calcification. XR/XR knee LT 4V IMPRESSION: Normal left knee. Tests considered The following testing was considered but not selected: low concern for complex fracture, dislocation or vascular injury requiring advanced imaging Prescription Management I considered prescription management with: Pain Medication Procedures Orthopedic Splinting/Casting Injury #1: Side: right Lower Extremity Injury Location: knee Lower Extremity Immobilizer: Pollo wrap Other Orthopedic Equipment: crutches Discharge Plan Discharge Clinical Impression: Knee sprain Patient Disposition: Home, Self-Care Instructions: Knee Sprain (ED) Additional Instructions: rest, ice, elevation Use the Pollo wrap and crutches for ambulation Take Motrin or Tylenol for any pain as needed Prescriptions: No Action ibuprofen 600 mg tablet 600 mg PO Q6H PRN (Reason: fever or pain) Qty: 30 0RF acetaminophen [Tylenol Extra Strength] 500 mg tablet 1,000 mg PO Q6H PRN (Reason: fever or pain) Qty: 20 0RF ibuprofen 400 mg tablet 400 mg PO TID PRN (Reason: fever or pain) Qty: 30 0RF ibuprofen 600 mg tablet 600 mg PO Q8H PRN (Reason: pain) Qty: 10 0RF oxycodone 5 mg tablet 5 mg PO BID PRN (Reason: pain) Qty: 10 0RF Rx Instructions: Partial Fill upon patient request. cyclobenzaprine 10 mg tablet 10 mg PO BEDTIME PRN (Reason: muscle spasm) Qty: 10 0RF Referrals: Physician,None [Primary Care Provider] - 1 week
== END 2023-11-12 15:40 | disposition home or self-care (01) ==
PROVIDERS: Emergency Provider Emergency Medicine
DX: S83.92XA Sprain of unspecified site of left knee, initial encounter (principal); Y93.67 Activity, basketball; Y92.9 Unspecified place or not applicable; Y99.9 Unspecified external cause status; M25.562 Pain in left knee
CPT/HCPCS: 73564; 99283

== ENCOUNTER 2023-12-13 21:38 | Emergency (ER) | payer BC, OTHER, SELFPAY ==
--- NOTE | ~2023-12-13 | XR_ITS ---
EXAMINATION: XR HAND, RIGHT CLINICAL INFORMATION: Injury COMPARISON: None available. TECHNIQUE: PA, lateral, and oblique views of the right hand. FINDINGS: There is a small fracture fragment off the dorsal base of the fifth distal phalanx, best seen on the lateral view, with proximal displacement of the fragment which overlies the head of the middle phalanx. Tiny comminuted fragment is also suspected. There is overlying soft tissue swelling. Articular alignment is otherwise maintained. Remaining osseous structures appear intact. XR/XR hand RT min 3V IMPRESSION: Displaced fracture fragment off the dorsal base of the fifth distal phalanx.
[2023-12-13 22:50] VITALS: BP 125/82; PULSE 59; RESP 16; TEMP 36.6; O2SAT 96; BMI 26.4
[2023-12-14 02:02] VITALS: BP 116/71; PULSE 54; RESP 18; TEMP 36.4; O2SAT 97
--- NOTE | 2023-12-14 03:07 | ED.EXTPRO ---
HPI - Extremity Problem General Chief complaint: Extremity Injury, Upper Stated complaint: RT pinky injury Time Seen by Provider: 12/14/23 02:38 Source: patient Mode of arrival: ambulatory History of Present Illness HPI Narrative: 33-year-old male who was playing basketball and caught his finger on the right hand and pass now has pain and swelling at the DIP. Related Data Previous Rx's Medication Instructions Recorded ibuprofen 600 mg tablet 600 mg PO Q6H PRN fever or pain 10/03/22 #30 tabs acetaminophen 500 mg tablet 1,000 mg (2 x 500 mg) PO Q6H PRN 12/24/22 (Tylenol Extra Strength) fever or pain #20 tabs ibuprofen 400 mg tablet 400 mg PO TID PRN fever or pain 12/24/22 #30 tabs cyclobenzaprine 10 mg tablet 10 mg PO BEDTIME PRN muscle spasm 04/02/23 #10 tabs ibuprofen 600 mg tablet 600 mg PO Q8H PRN pain #10 tabs 04/02/23 oxycodone 5 mg tablet 5 mg PO BID PRN pain #10 tabs 04/02/23 Allergies Allergy/AdvReac Type Severity Reaction Status Date / Time amoxicillin [AMOXICILLIN] Allergy Mild RASH Verified 12/13/23 22:50 Review of Systems Review of Systems: Pertinent positives and negatives as stated in HPI PMFSH Past Medical History Source: nursing notes reviewed Social History Social History Smoked in Last 30 Days: No Use of substances other than those prescribed or required for medical reasons: No Advance Directives: No Advance Directives Information Provided: No Physical Exam Vital Signs: Vital Signs: Last Vital Signs Temp 97.5 F 12/14/23 02:02 Pulse 54 12/14/23 02:02 Resp 18 12/14/23 02:02 BP 116/71 12/14/23 02:02 Pulse Ox 97 12/14/23 02:02 O2 Del Method Room Air 12/14/23 02:02 BMI result Body Mass Index 26.4 VITAL SIGNS: Reviewed. GENERAL: Well developed, well nourished, in no acute distress. HEAD: Normocephalic/atraumatic EYES: PERRLA, EOMI LUNGS: Normal breath sounds. No adventitious sounds or accessory muscle use. SpO2<97> CARDIOVASCULAR: Regular rate and rhythm without noted murmurs ABDOMEN: Soft, non-tender, non-distended with bowel sounds. MUSCULOSKELETAL: No tenderness, deformities, or effusions noted on gross inspection. EXTREMITIES: No cyanosis, clubbing or edema. RIGHT HAND:: Noted deformity at the DIP of right 5th digit SKIN: Inspection of the skin reveals no rashes NEUROLOGIC: Alert and oriented x 4. Strength and sensation to light touch were grossly intact x 4. Medical Decision Making Medical Decision Making MDM Narrative: 33-year-old male with history and clinical presentation of likely dislocation versus fracture, on review of x-ray it appears it is displaced fracture, this was reduced successfully and patient was splinted and given follow-up with Orthopedics. Differential Diagnosis Differential Diagnoses: The differential diagnosis associated with the presentation includes Please see the discussion above Admission/Observation Consideration of admission/observation: Escalation of care including admission/observation considered Please see the discussion above Radiology Impression Discussion of test interpretation with radiology: I have reviewed the radiologist's reading. Radiologist Impression: Please see the discussion above External Record Review External record reviewed: Outpatient record and Prior outpatient labs Critical Care Time Critical Care Time Critical Care Time: Yes Total Critical Care Time: 30 Attestation: I personally attest to this time spent taking care of the patient. Discharge Plan Discharge Clinical Impression: Finger fracture, right Patient Disposition: Home, Self-Care Instructions: Finger Fracture (ED) Additional Instructions: 1. Recommend [id number] Tylenol/ibuprofen as needed for pain control. 2. Please see the referral provided to you below for Orthopedics and call the office in the morning to set up an appointment for re-evaluation further outpatient management. Return to the ER for any worsening symptoms. Prescriptions: No Action ibuprofen 600 mg tablet 600 mg PO Q6H PRN (Reason: fever or pain) Qty: 30 0RF acetaminophen [Tylenol Extra Strength] 500 mg tablet 1,000 mg PO Q6H PRN (Reason: fever or pain) Qty: 20 0RF ibuprofen 400 mg tablet 400 mg PO TID PRN (Reason: fever or pain) Qty: 30 0RF ibuprofen 600 mg tablet 600 mg PO Q8H PRN (Reason: pain) Qty: 10 0RF oxycodone 5 mg tablet 5 mg PO BID PRN (Reason: pain) Qty: 10 0RF Rx Instructions: Partial Fill upon patient request. cyclobenzaprine 10 mg tablet 10 mg PO BEDTIME PRN (Reason: muscle spasm) Qty: 10 0RF Referrals: Yazmin Cross MD [Physician] -
[2023-12-14 03:35] VITALS: BP 122/71; PULSE 56; RESP 16; TEMP 36.4
== END 2023-12-14 03:40 | disposition home or self-care (01) ==
PROVIDERS: Emergency Provider Student in an Organized Health Care Education/Training Program
DX: S62.636A Displaced fracture of distal phalanx of right little finger, initial encounter for closed fracture (principal); Y93.67 Activity, basketball; Y92.9 Unspecified place or not applicable; Y99.9 Unspecified external cause status; M79.644 Pain in right finger(s)
CPT/HCPCS: 73130; 99283; 99284

== ENCOUNTER 2023-12-21 10:12 | Outpatient (REF) | payer BC, OTHER, SELFPAY ==
--- NOTE | ~2023-12-21 | XR_ITS ---
EXAMINATION: XR HAND, RIGHT CLINICAL INFORMATION: Pain COMPARISON: Right hand x-rays December 13, 2023 TECHNIQUE: PA, lateral, and oblique views of the right hand. FINDINGS: Again demonstrated is a displaced fracture through the dorsal base of the fifth distal phalanx with overlying soft tissue swelling. No other gross abnormality of the left hand identified. XR/XR hand RT min 3V IMPRESSION: Similar appearance of displaced fracture through the dorsal base of the fifth distal phalanx.
== END 2023-12-21 10:13 | disposition home or self-care (01) ==
LOC: HO.HOSX 10:12
PROVIDERS: Visit Provider Physician Assistant
DX: M79.641 Pain in right hand (principal); S62.606D Fracture of unspecified phalanx of right little finger, subsequent encounter for fracture with routine healing; X58.XXXD Exposure to other specified factors, subsequent encounter; Z79.899 Other long term (current) drug therapy
CPT/HCPCS: 73130; 99202

== ENCOUNTER 2023-12-21 10:24 | Outpatient (AMB) | payer OTHER, SELFPAY ==
--- NOTE | 2023-12-21 10:28 | MHC.OFFVIS ---
Intake Intake Visit Reasons: FC-Finger fracture, right pinky DOI-12/14/23 Intake Note: Naveed a 33 year old right hand dominant female presents today for an evaluation of right hand small finger, DOI 12/12/23. Patient reports while playing basketball, he went up for a rebound hitting his small finger. He was seen at [facility] where xrays were taken and placed in a finger splint. Currently his pain comes with movement of his finger. Allergies amoxicillin [AMOXICILLIN] Allergy (Mild, Verified 12/21/23 10:54) RASH Medication List - Last Reconciled 12/22/23 by Jim Benavidez PA-C acetaminophen (Tylenol Extra Strength) 1,000 mg (2 x 500 mg) PO Q6H PRN albuterol sulfate 90 mcg/actuation (Ventolin HFA) 2 puffs inhalation Q6H PRN cyclobenzaprine 10 mg PO BEDTIME PRN fluticasone propion-salmeterol 250-50 mcg/dose (Advair Diskus) 1 ea inhalation BID ibuprofen 600 mg PO Q6H PRN ibuprofen 400 mg PO TID PRN ibuprofen 600 mg PO Q8H PRN oxycodone 5 mg PO BID PRN HPI FC-Finger fracture, right pinky DOI-12/14/23 HPI Details 33-year-old right hand dominant male who presents to the office today for evaluation of right 5th metacarpal injury while playing basketball when he went up for a rebound and hit his small finger, 12/14/23. He was seen at ED where x-rays were performed and he was placed in a finger splint. He currently states he has pain which comes with movement of his finger. 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 Review of Systems Const All systems reviewed & are unremarkable except as noted in HPI and below Physical Exam Const General: cooperative, healthy appearing, comfortable, no acute distress, well developed and alert Orientation/consciousness: patient oriented x3 HEENT Head: Yes normal to inspection, Yes normocephalic and Yes atraumatic Eyes General: appearance normal, both eyes and all related structures Neck Neck: Yes normal visual inspection and Yes no lymphadenopathy Resp Effort & Inspection: normal respiratory effort and able to speak in complete sentences Cardio Rate: regular rate Peripheral pulses: Peripheral pulses 2+ throughout GI Inspection: Yes normal to inspection Palpation (GI): Soft to palpation Skin General skin exam: no rashes or lesions noted Neuro General: patient oriented x3 Extrem Other: Right small finger: Normal to inspection. He has tenderness over the DIP of the finger. He does have a mallet deformity. NVI. Psych Appearance: grossly normal Mental Status: mental status grossly normal Results Reviewed Results Reviewed: Xrays were obtained in the office today and personally reviewed by me show bony mallet of the right small finger Assessment & Plan Assessment & Plan (1) Finger fracture, right: Code(s): S62.609A - Fracture of unspecified phalanx of unspecified finger, initial encounter for closed fracture Plan I discussed the case with Dr. Cross. I discussed the extent of the injury to the patient and options available. Given the extent of the fracture pattern and high risk of further displacement, it is recommended that we surgically fix this to help with stability and restoring anatomy. I explained to the patient the procedure in detail along with the risks, benefits and alternatives. Risks including but not limited to infection, wound breakdown, stiffness, ongoing pain, nonunion or malunion, and possible complications with hardware. He does understand all this and would like to proceed with closed versus open reduction internal fixation of the right small finger with Dr. Cross. He will be booked accordingly. Fracture care was not billed today Orders: Orders XR hand RT min 3V 12/21/23 M79.641 - Pain in right hand Patient Instructions: Scribed for Jim Benavidez PA-C, by Christ Newby medical transport specialist, on 12/21/2023 at 10:30 AM EST. Jim Champion PA-C, have personally reviewed and agree with the information entered by the scribe. Coding Level of Care Code New Pt Level 4 (31090) Diagnoses Finger fracture, right S62.609A
== END 2023-12-21 11:40 | disposition home or self-care (01) ==
PROVIDERS: Visit Provider Physician Assistant
DX: S62.606A Fracture of unspecified phalanx of right little finger, initial encounter for closed fracture (principal)
CPT/HCPCS: 99204

== ENCOUNTER 2023-12-29 05:48 | Day surgery (SDC) | payer BC, OTHER, SELFPAY ==
--- NOTE | 2023-12-27 12:50 | P.CONAN_ITS ---
HPI - Anesthesia Eval Consult details Narrative: 33yo M for Right Small Finger 5th digit [facility] vs [facility] ED for syncopal episode 2022. ER w/u negative. T/C to patient 12/27/23. No further syncopal episodes. No dizziness, cardiac symptoms, etc. Attributes syncope to dehydration. 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
[2023-12-29] VITALS (10 sets, daily range): BP systolic 107–132; BP diastolic 66–95; PULSE 50–78; RESP 10–18; TEMP 36.1; O2SAT 96–100; BMI 27.1
--- NOTE | ~2023-12-29 | FL_ITS ---
EXAMINATION: XR FLUOROSCOPY WITH IMAGES CLINICAL INFORMATION: ORIF fracture of the right fifth distal phalanx. COMPARISON: Radiographs dated 12/23/2023. TECHNIQUE: Fluoroscopy Supervised By: Dr. Yazmin Cross. Fluoroscopy Time: 41.64 seconds. Cumulative Dose: 1.0723 mGy. DAP: 0.0648 Gycm2. Images: 4. FINDINGS: The submitted images show a fixator pin stabilizing a fracture of the base of the right. Distal phalanx. The fixator pin traverses the fifth distal interphalangeal joint. FL/FL guidance in OR IMPRESSION: Intraoperative fluoroscopic guidance is provided during ORIF of the right fifth distal phalanx. Please see the patient's Operative Report for full procedural details.
[2023-12-29] MEDS: Lactated Ringers 1,000 ML 100 ML IVCONT (06:36)
--- NOTE | 2023-12-29 07:20 | HO.ANESPROP2 ---
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 Allergies Allergy/AdvReac Type Severity Reaction Status Date / Time amoxicillin [AMOXICILLIN] Allergy Mild RASH Verified 12/21/23 10:54 Active Medications: Current Medications Lactated Ringer's (Lr) 1,000 mls @ 100 mls/hr IVCONT .Q10H FRANCIS Last Admin: 12/29/23 06:36 Dose: 100 mls/hr Home Medications ?Medication ?Instructions ?Recorded ?Confirmed ?Last Taken ?Type albuterol sulfate 90 mcg/actuation 2 puff inhalation Q6H PRN wheezing 12/21/23 12/22/23 12/05/23 History aerosol inhaler (Ventolin HFA) fluticasone 250 mcg-salmeterol 50 1 ea inhalation BID 12/21/23 12/22/23 12/29/23 History mcg/dose blistr powdr for inhalation (Advair Diskus) Exam Height,Weight and Vital Signs: Height 6 ft 1 in Weight 93.349 kg Last Vital Signs Temp 97 F 12/29/23 06:23 Pulse 65 12/29/23 06:23 Resp 18 12/29/23 06:23 BP 130/95 H 12/29/23 06:23 Pulse Ox 96 12/29/23 06:23 O2 Del Method Room Air 12/29/23 06:23 Assessment and Plan Final Anesthetic Review Family History of Problems with Anesthesia: No History of Problems with Anesthesia: No NPO: Yes ASA Class: II Final Preanesthetic Review: No Changes in Pt Med Stat, Meds/Allgs Chart Reviewed, Consent Obtained/Reviewed and Anes Risks/Benef Reviewed Patient Risk: Low Procedure Risk: Low Anesthetic Plan Anesthetic Plan: GA Disposition: Standard PACU
--- NOTE | 2023-12-29 07:45 | MHC.SHP ---
Pre-Procedural Eval Section A - 24 Hr Update-Section A only Date of Service: 12/29/23 The patient is an INPATIENT: No Changes since office visit: No Cold of Flu in the past 2 weeks, No New Medical Problems, No Changes in Medication and No Patient answered all questions The patient has been examined within 24 hours of the surgical procedure. The History & Physical has been completed within 30 days and I have reviewed it.: No Section B - Complete if H&P > 30 days Chief Complaint: Displaced fracture of distal phalanx of right Allergies: Allergies Allergy/AdvReac Type Severity Reaction Status Date / Time amoxicillin [AMOXICILLIN] Allergy Mild RASH Verified 12/21/23 10:54 Plan I have reviewed the history and physical and performed a pertinent physical examination on my patient. No changes have occurred unless specified. Time Spent With Patient Time: Total time managing care of this patient today ____ minutes.
--- NOTE | 2023-12-29 07:47 | W.PM.OPN ---
Operative Note Operative Note Date of Service: 12/29/23 Narrative: Operative Note Narrative: Preop diagnosis: 1. Right small finger distal phalanx fracture with mallet deformity Postop diagnosis: Same Procedure: 1. Right small finger closed reduction percutaneous pinning 2. Ulnar nerve block Surgeon: Yazmin Cross MD Anesthesia: General Anesthesia Findings: finger fracture Implants: 0.045 K-wires times 1, 0.035 K-wire x1 Tourniquet time: None EBL: Minimal Specimen: None Drains: None Complications: None Disposition: Brought to the recovery room in stable condition Plan: Follow-up in 10-14 days for a wound check, postop radiographs and for placement in a finger splint. Teach pin site care, allowed to wash in the shower with soap and water, but no underwater Anticipate K-wire removal in 6 weeks weeks based on interval bony healing, the dorsally placed K-wire can be removed at 3-4 weeks if needed. Educate the patient that full fracture healing anticipated in approximately 8-12 weeks. Indications: The patient is 33 years old with a right small finger bony mallet fracture of the distal phalanx . The risks and benefits of operative treatment, including but not limited to risk of damage to blood vessels, nerves, tendons, infection, recurrence, delayed or nonunion of fracture, persistent pain or numbness, incomplete resolution of preoperative symptoms, or need for further surgery were discussed with the patient and they wished to proceed with surgery. Procedure: Once consent was obtained patient was brought back to the operating suite and placed in the operating table in a supine position. . Perioperative antibiotics and general anesthesia was administered by the anesthesia team. A tourniquet was applied to the proximal aspect of the right upper extremity and the limb was prepped and draped in a standard surgical fashion. Tourniquet was not inflated during the case. The FluoroScan was used during the case to assist with our fracture reduction and placement of all implants. A closed reduction was performed on the patient's right small finger distal phalanx fracture and mallet deformity. I placed a single 0.045 K-wire retrograde through the tip of the distal phalanx and advanced it retrograde across the distal phalanx, across the D IP joint and down to the base of the middle phalanx, holding the distal phalanx in an extended position at the D IP joint. I then used a 0.035 K-wire to bring the dorsal fragment closer to its anatomic position on the dorsal base of the distal phalanx. Bridgett advanced into the distal phalanx. The Fracture alignment was assessed for both angular and rotational malalignment. Once satisfied with our fracture reduction and implant placement, the K-wires were bent and cut short and pin caps applied. Final fluoroscopic images were then obtained. The wounds were copiously irrigated with normal saline. An ulnar nerve block was then performed by infiltrating about the ulnar nerve at the wrist with some 1% lidocaine with epinephrine for postop pain control. A Sterile dressing and short volar splint extending to the forearm was applied. The patient appears to have tolerated the procedure well and with no complications. All digits were well vascularized at the conclusion of the case.
[2023-12-29] MEDS: ondansetron HCL 4 MG/2 ML VIAL IVPUSH (09:56)
[2023-12-29] MEDS: Haloperidol Lactate 5 MG/ML VIAL 1 MG IVPUSH (10:03)
== END 2023-12-29 11:27 | disposition home or self-care (01) ==
PROVIDERS: Visit Provider Orthopaedic Surgery
PROC: (CPT 26756; principal; 2023-12-29 07:30)
DX: S62.636A Displaced fracture of distal phalanx of right little finger, initial encounter for closed fracture (principal); M20.011 Mallet finger of right finger(s); W21.89XA Striking against or struck by other sports equipment, initial encounter; Y93.67 Activity, basketball; Y92.9 Unspecified place or not applicable; Y99.8 Other external cause status; Z79.51 Long term (current) use of inhaled steroids; Z79.899 Other long term (current) drug therapy; Z88.1 Allergy status to other antibiotic agents
CPT/HCPCS: 26756; J0690; J1100; J1630; J2250; J2405; J2704; J2795; J3010

== ENCOUNTER → 2023-12-29 05:48 | Outpatient (BNV) | payer OTHER, SELFPAY | PROVIDERS: Visit Provider Orthopaedic Surgery | DX: S62.636A Displaced fracture of distal phalanx of right little finger, initial encounter for closed fracture (principal) | CPT/HCPCS: 26756 ==

== ENCOUNTER 2024-01-05 12:00 | Outpatient (AMB) | payer OTHER, SELFPAY ==
--- NOTE | 2024-01-05 12:20 | MHC.OFFVIS ---
Intake Visit Reasons: P/O SF FX 12/29/23 dressing change Intake Note: Naveed is a 33 year old male who presents today for a follow up of his right small finger fracture s/p CRPP 12/29/23. Patient reports that he is doing well with mild pain. He would like a dressing change as the bandages are dirty and splint is broken. I removed sami wrap and gauze wrap. Patient would just like a clean splint. Allergies amoxicillin [AMOXICILLIN] Allergy (Mild, Verified 01/05/24 12:26) RASH HPI HPI P/O SF FX 12/29/23 dressing change: Details: 33-year-old gentleman returns to the office today status post right small finger CRPP with Dr. Cross on December 28. He states the dressing is dirty. He has not gotten it wet. Does admit to lifting his children which has caused the splint to break. 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 Office Procedures Casting/Splints [id number] Splint Application Procedure code (CPT) selection complete Assessment & Plan Assessment & Plan (1) Finger fracture, right: Code(s): S62.609A - Fracture of unspecified phalanx of unspecified finger, initial encounter for closed fracture Category: Medical Plan: The patient was placed in a new volar/ulnar gutter splint. I stressed the importance of keeping the splint clean and dry and intact at all times and he should perform no lifting more than a cell phone. He will return to our office on his routine postop appointment, sooner if needed.
== END 2024-01-05 13:00 | disposition home or self-care (01) ==
LOC: HO.HOS 12:00
PROVIDERS: Visit Provider Physician Assistant
DX: S62.606A Fracture of unspecified phalanx of right little finger, initial encounter for closed fracture (principal)
CPT/HCPCS: 29125; 99024

== ENCOUNTER → 2024-01-05 12:00 | Outpatient (BNVA) | payer BC, OTHER, SELFPAY | PROVIDERS: Visit Provider Physician Assistant | DX: Z48.00 Encounter for change or removal of nonsurgical wound dressing (principal); S62.606A Fracture of unspecified phalanx of right little finger, initial encounter for closed fracture; X50.3XXA Overexertion from repetitive movements, initial encounter; Y93.F2 Activity, caregiving, lifting; Y92.9 Unspecified place or not applicable; Y99.9 Unspecified external cause status | CPT/HCPCS: 99212 ==

== ENCOUNTER 2024-01-10 09:57 | Outpatient (REF) | payer BC, OTHER, SELFPAY ==
--- NOTE | ~2024-01-10 | XR_ITS ---
EXAMINATION: XR HAND, RIGHT CLINICAL INFORMATION: Pain in right hand. COMPARISON: 12/29/2023, 12/28/2023 and 12/21/2023 images. TECHNIQUE: PA, lateral, and oblique views of the right hand. FINDINGS: Two fixator pins traverse previously demonstrated fracture of the base of the fifth distal phalanx. Hardware appears intact. Diffuse soft tissue swelling. Alignment is satisfactory. XR/XR hand RT min 3V IMPRESSION: Two fixator pins traverse previously demonstrated fracture of the base of the fifth distal phalanx. Hardware appears intact. Diffuse soft tissue swelling. Alignment is satisfactory.
== END 2024-01-10 09:58 | disposition home or self-care (01) ==
LOC: HO.HOSX 09:57
PROVIDERS: Visit Provider Orthopaedic Surgery
DX: M79.641 Pain in right hand (principal); S62.636D Displaced fracture of distal phalanx of right little finger, subsequent encounter for fracture with routine healing; X58.XXXD Exposure to other specified factors, subsequent encounter; Z98.890 Other specified postprocedural states
CPT/HCPCS: 73130; 99212

== ENCOUNTER 2024-01-10 13:15 | Outpatient (AMB) | payer OTHER, SELFPAY ==
--- NOTE | 2024-01-10 13:20 | A.OFFVIS_ITS ---
Vital Signs 01/10/24 13:28 Handedness Right Intake Visit Reasons: PO little finger ORIF 12/29/23 AR Intake Note: Naveed is a 33 year old right hand dominate male who presents today for his first post operative visit, s/p Right small finger CRPP 12/29/23. Patient reports he is doing well with mild pain that comes and goes. He would like to discuss recovery time and work status today. Xrays updated and splint removed. Allergies amoxicillin [AMOXICILLIN] Allergy (Mild, Verified 01/10/24 13:29) RASH HPI HPI PO little finger ORIF 12/29/23 AR: Details: Naveed is a 33 year old right hand dominant man who presents S/P right small finger distal phalanx CRPP, DOS: 12/29/23. He was seen by THOMAS Fernandez on 01/05/24 for a dressing change as his was soiled and broken, which occurred because he was lifting his children. His incision was not wet and no Abx prescribed. He says he is doing well overall. He is seen today with his 5-year-old son in 2-1/2-year-old daughter He would like to discuss work restrictions and recovery timeline today. 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 He believes he can be placed on desk duty. 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 He can bring his thumb, index, middle, and ring fingers closed to a fist He has some stiffness in the small finger MCP & PIP joints. Showed him some exercises to work on range of motion for these joints. He can extend all his digits Smooth and painless wrist ROM Sensation is intact Cap refill is brisk Radiographs: 3 views of the right hand, with attention to the small finger, were taken and viewed by me today in clinic. They show a small finger distal phalanx fracture with satisfactory fracture alignment and position of both K-wires. His small finger DIP joint is held in extension. Psych Appearance: grossly normal Affect: normal affect Attitude: cooperative Assessment & Plan Assessment & Plan (1) Closed mallet fracture of distal phalanx of right little finger: Code(s): S62.636A - Displaced fracture of distal phalanx of right little finger, initial encounter for closed fracture Category: Medical Plan Assessment & Plan: 1. Right small finger dorsal distal phalanx base fracture, with mallet deformity S/P CRPP, DOS: 12/29/23 The patient appears to be doing well post-operatively I educated him about the post-operative course and proper pin-site care We are discontinuing the cast today. I explained the signs and symptoms of infection, if the patient develops any new or worsening erythema, drainage, pain, or warmth they should contact the clinic or attend the ED. He was fitted for a finger splint, and we taught him how to dress the finger and placed it in the splint. This will allow for PIP & MCP joint motion He will perform daily dressing changes at home I discussed activity modifications, He is to lift nothing heavier than a cellphone for the next 4 weeks. I explained he needs to be careful with his children for the next few weeks as well He will perform gentle ROM exercises at home He should avoid any underwater activities at this time He was given a note for work restricting him to light duty, with a 2lb weight limit for the next 4 weeks. Anticipate recovery in another 6-10 week post-operatively. He will follow up in 1-2 weeks for a wound check. Anticipate removal of dorsal K-wire, (blue tip) Anticipate removal of longitudinal (white tip) K-wire at 6 weeks postop Scribed for Yazmin Cross MD by Zion Cruz, medical communication specialist, on 01/10/24 at 1:40 PM, EST. Orders: Orders XR hand RT min 3V Today M79.641 - Pain in right hand Coding Level of Care Code Global (65204) Diagnoses Closed mallet fracture of distal phalanx of right little finger S62.636A
== END 2024-01-10 14:15 | disposition home or self-care (01) ==
PROVIDERS: Visit Provider Orthopaedic Surgery
DX: S62.636A Displaced fracture of distal phalanx of right little finger, initial encounter for closed fracture (principal)
CPT/HCPCS: 99024

== ENCOUNTER 2024-01-11 10:51 | Outpatient (AMB) | payer OTHER, SELFPAY ==
--- NOTE | 2024-01-11 11:04 | A.OFFVIS_ITS ---
Intake Visit Reasons: intermittent penile pain Intake Note: New Patient presents for initial visit for penile rash Urology Medications: none Blood Thinner: none Manager Channel Required: No Accompanied by: Child Allergies amoxicillin [AMOXICILLIN] Allergy (Mild, Verified 01/11/24 11:30) RASH Medication List - Last Reconciled 01/11/24 by TESHA Duggan albuterol sulfate 90 mcg/actuation (Ventolin HFA) 2 puffs inhalation Q6H PRN fluticasone propion-salmeterol 250-50 mcg/dose (Advair Diskus) 1 ea inhalation BID ibuprofen 600 mg PO TID PRN HPI Comments Details: Naveed is a very pleasant 33-year-old male patient who was accompanied by his so n at today's office visit. He presents to the office today as a new patient for penile rash. In discussion with the patient today he reports noting penile rash approximately 3 months ago at which time he seeked emergency room care and recommendations were made for urology referral for further assessment evaluation. He reports since then his rash has since subsided. In assessment of the patient today the penis is circumcised. There is no open areas, lesions, and or drainage noted throughout the penis, testicles, and or scrotum. The shaft of the penis does appear dry otherwise no masses or lumps palpated. He otherwise denies any bothersome urinary issues or concerns. He denies urinary urgency, urinary frequency, incontinence, nocturia, hematuria, dysuria, foul smelling urine, changes to urinary stream, flank pain, fever, and or chills. He is happy with his current voiding parameters. 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 Review of Systems Const All systems reviewed & are unremarkable except as noted in HPI and below Physical Exam Const General: cooperative, healthy appearing, comfortable, no acute distress, well developed, alert and awake Nutritional Appearance: thin Orientation/consciousness: patient oriented x3 Limitations: no limitations HEENT Head: Yes normal to inspection, Yes normocephalic and Yes atraumatic Ears: hearing grossly normal bilaterally Eyes General: appearance normal, both eyes and all related structures Neck Neck: Yes normal visual inspection and Yes trachea midline Chest Chest palpation & inspection: normal inspection of the chest Resp Effort & Inspection: normal respiratory effort and able to speak in complete sentences Cardio Rate: regular rate GI Inspection: Yes normal to inspection General: Yes no CVA tenderness Penis: normal penis and circumcised Meatus: meatus normal Scrotum: scrotum normal Testes: Testes normal Back/Spine/Pelvis Back: no CVA tenderness Skin General skin exam: no rashes or lesions noted Neuro General: patient oriented x3 Extrem General: Yes normal to inspection Psych Appearance: grossly normal and well kempt Mental Status: mental status grossly normal Speech and movement: Normal speech and movement present and Clear speech present Affect: normal affect Attitude: cooperative Thought process: Normal thought process present Thought content: Normal thought content present Insight: Fair insight present (Psych) Judgement: Fair judgement present (Psych) Results AMB Urinalysis, Automated UA Leukoctes 0 Amanda/uL Last Edit by [employer] on 01/11/24 11:15 UA Nitrite Negative Last Edit by [employer] on 01/11/24 11:15 UA Urobilinogen 0.2 mg/dL Last Edit by [employer] on 01/11/24 11:15 UA Protein 15 mg/dL Last Edit by [employer] on 01/11/24 11:15 UA pH 5.5 Last Edit by [employer] on 01/11/24 11:15 UA Blood 10 Sean/uL Last Edit by [employer] on 01/11/24 11:15 UA Specific [place] 1.030 Last Edit by [employer] on 01/11/24 11:15 UA Ketone Negative Last Edit by [employer] on 01/11/24 11:15 UA Bilirubin 0 mg/dL Last Edit by [employer] on 01/11/24 11:15 UA Glucose 0 mg/dL Last Edit by [employer] on 01/11/24 11:15 Results Reviewed Results Reviewed: Laboratory Last Values Urine pH (Auto) 5.5 01/11/24 11:13 Specific [place] (Auto) 1.030 01/11/24 11:13 Urine Protein (Auto) 15 mg/dL 01/11/24 11:13 Glucose (UA)(Auto) 0 mg/dL 01/11/24 11:13 Urine Ketones (Auto) Negative 01/11/24 11:13 Urine Blood (Auto) 10 Sean/uL 01/11/24 11:13 Urine Nitrite (Auto) Negative 01/11/24 11:13 Urine Bilirubin (Auto) 0 mg/dL 01/11/24 11:13 Urine Urobilinogen (Auto) 0.2 mg/dL 01/11/24 11:13 Leukocyte Esterase (Auto) 0 Amanda/uL 01/11/24 11:13 Assessment & Plan Assessment & Plan (1) Penile rash: Code(s): R21 - Rash and other nonspecific skin eruption Category: Medical Plan In office urinalysis results reviewed with the patient today; as noted above. Reassurance provided. Penile rash has since resolved. Patient denies any bothersome urinary issues or concerns. He is happy with his current voiding parameters. Follow-up as needed. Orders: Orders AMB Urinalysis Automated Today Z13.9 - Encounter for screening, unspecified Patient Instructions: The patient had an opportunity to ask questions regarding the treatment plan. All questions were answered. Physical exam, labs, and imaging were discussed and reviewed in detail. As well as risks, benefits, and discussion of treatment choices. No major barriers to understanding were identified. The patient expressed understanding and agreement with the above treatment plan. The patient was made aware they should contact our office by phone for worsening of their current condition, the appearance of new symptoms, or with any questions or concerns. Compliance is encouraged with any medications and follow up testing that is ordered. It is a privilege to be allowed the opportunity to participate in? your urological care.? Again, if you have any questions or concerns If you have any questions or concerns please do not hesitate to contact me. The office is [phone]. This note is constructed using voice recognition software. While every effort has been made to ensure accuracy decal cutter errors may have been included. Yours sincerely, TESHA Duggan Coding Level of Care Code New Pt Level 3 (00390) Diagnoses Penile rash R21
== END 2024-01-11 11:33 | disposition home or self-care (01) ==
PROVIDERS: Visit Provider Nurse Practitioner Family
DX: Z13.9 Encounter for screening, unspecified (principal); R21 Rash and other nonspecific skin eruption
CPT/HCPCS: 99203

== ENCOUNTER → 2024-01-11 10:51 | Outpatient (BNVA) | payer BC, OTHER, SELFPAY | PROVIDERS: Visit Provider Nurse Practitioner Family | DX: S62.636D Displaced fracture of distal phalanx of right little finger, subsequent encounter for fracture with routine healing (principal); Z98.890 Other specified postprocedural states; R21 Rash and other nonspecific skin eruption | CPT/HCPCS: 81003; 99202; 99212 ==

== ENCOUNTER 2024-01-11 11:38 | Outpatient (AMB) | payer OTHER, SELFPAY ==
--- NOTE | 2024-01-11 11:41 | A.OFFVIS_ITS ---
Intake Visit Reasons: PO - little finger ORIF 12/29/23 AR Intake Note: Naveed is a 33 year old right hand dominate male who presents today for a dressing change visit, s/p Right small finger CRPP 12/29/23. States he did a dressing change at home and is now having pain, also states he has a son who is very playful and might have done a wrong move. Allergies amoxicillin [AMOXICILLIN] Allergy (Mild, Verified 01/11/24 11:30) RASH HPI HPI PO - little finger ORIF 12/29/23 AR: Details: Naveed is a 33 year old right hand dominant man who presents S/P right small finger distal phalanx CRPP, DOS: 12/29/23. He is here with complaints of increased pain following a dressing change, He was seen on 01/10/24 and placed in a dressing and finger splint. He says while changing his dressing today he felt increased pain at his dorsal pin-site. He is concerned his young son may have bumped his hand and moved something. He is seen today with his 2-year-old son He would like to discuss work restrictions and recovery timeline today. 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 He believes he can be placed on desk duty. 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 His pin sites were clean and dry and without evidence of infection. The pins were in good position Cap refill brisk Results AMB Urinalysis, Automated UA Leukoctes 0 Amanda/uL Last Edit by Luis Felipe Phillips on 01/11/24 11:15 UA Nitrite Negative Last Edit by Luis Felipe Phillips on 01/11/24 11:15 UA Urobilinogen 0.2 mg/dL Last Edit by Luis Felipe Phillips on 01/11/24 11:15 UA Protein 15 mg/dL Last Edit by Luis Felipe Phillips on 01/11/24 11:15 UA pH 5.5 Last Edit by Luis Felipe Phillips on 01/11/24 11:15 UA Blood 10 Sean/uL Last Edit by Luis Felipe Phillips on 01/11/24 11:15 UA Specific [place] 1.030 Last Edit by Luis Felipe Phillips on 01/11/24 11:15 UA Ketone Negative Last Edit by Luis Felipe Phillips on 01/11/24 11:15 UA Bilirubin 0 mg/dL Last Edit by Luis Felipe Rosanneesdras on 01/11/24 11:15 UA Glucose 0 mg/dL Last Edit by Luis Felipe Phillips on 01/11/24 11:15 Assessment & Plan Assessment & Plan (1) Closed mallet fracture of distal phalanx of right little finger: Code(s): S62.636A - Displaced fracture of distal phalanx of right little finger, initial encounter for closed fracture Category: Medical Plan Assessment & Plan: 1. Right small finger dorsal distal phalanx base fracture, with mallet deformity S/P CRPP, DOS: 12/29/23 The patient appears to be doing well post-operatively I educated him about the post-operative course and proper pin-site care He is here for a dressing change, following increased pain after a dressing early ge at home today He was fitted for a new wrist based finger spica splint, to be worn like a cast, for the next two weeks. He will discontinue daily dressing changes and cover his splint when needed, such as in the shower. This should be easier for him to manage, particularly with the 2 young children. I explained the signs and symptoms of infection, if the patient develops any new or worsening erythema, drainage, pain, or warmth they should contact the clinic or attend the ED. I discussed activity modifications, He is to lift nothing heavier than a cellphone for the next 4 weeks. I explained he needs to be careful with his children for the next few weeks as well He will perform gentle ROM exercises at home He should avoid any underwater activities at this time He will follow up in 2 weeks for a wound check. Anticipate removal of dorsal K- wire, (blue tip) Anticipate removal of longitudinal (white tip) K-wire at 6 weeks postop Scribed for Yazmin Cross MD by Zion Cruz, director of graduate medical education, on 01/11/24 at 11:50 AM, EST. Coding Level of Care Code Est Pt Level 2 (29878) Diagnoses Closed mallet fracture of distal phalanx of right little finger S62.636A
== END 2024-01-11 12:14 | disposition home or self-care (01) ==
LOC: HO.HOS 11:38
PROVIDERS: Visit Provider Orthopaedic Surgery
DX: S62.636A Displaced fracture of distal phalanx of right little finger, initial encounter for closed fracture (principal)
CPT/HCPCS: 99024

== ENCOUNTER 2024-01-17 11:03 | Outpatient (AMB) | payer OTHER, SELFPAY ==
--- NOTE | 2024-01-17 11:05 | A.OFFVIS_ITS ---
Intake Visit Reasons: PO - little finger ORIF 12/29/23 AR Intake Note: Naveed is a 33 year old right hand dominant male who presents today for a post op appointment s/p right little finger ORIF 12/29/23 AR. Patient expresses that he felt that the pin went in when in when he took a shower and he felt the pin at the tip of his finger. Allergies amoxicillin [AMOXICILLIN] Allergy (Mild, Verified 01/17/24 11:08) RASH HPI HPI PO - little finger ORIF 12/29/23 AR: Details: 33-year-old right hand dominant male who presents in the office today for a wound check; 19 days status post right small finger closed reduction percutaneous pinning with and ulnar nerve block, which was performed on 12/29/[address] Cross. Patient was seen in the office by Dr. Cross on 01/11/2024 for a dressing change. He was fitted with a new wrist-based finger spica splint, to be worn like a cast, for the next two weeks. He will discontinue daily dressing changes and cover his splint when needed, such as in the shower. While in the office the patient reports he felt like the pin went further into his finger when he was in the shower. He states he feels the pin at the tip of his finger. 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 No surrounding erythema or drainage. No signs of infection. Sensation intact. Capillary refill is brisk. Assessment & Plan Assessment & Plan (1) Closed mallet fracture of distal phalanx of right little finger: Comment: Right small finger closed reduction percutaneous pinning with and ulnar nerve block 12/29/2023 Dr. Cross Code(s): S62.636A - Displaced fracture of distal phalanx of right little finger, initial encounter for closed fracture Category: Medical Plan Mr. Kearns is a 33-year-old right hand dominant male who presents in the office today for a wound check; 19 days status post right small finger closed reduction percutaneous pinning with and ulnar nerve block, which was performed on 12/29/[address] Cross. Patient was seen in the office by Dr. Cross on 01/11/2024 for a dressing change. He was fitted with a new wrist-based finger spica splint, to be worn like a cast, for the next two weeks. He will discontinue daily dressing changes and cover his splint when needed, such as in the shower. While in the office the patient reports he felt like the pin went further into his finger when he was in the shower. He states he feels the pin at the tip of his finger. The pin on the dorsal aspect was pulled while in the office today. The distal pin site was redressed with Xeroform, gauze, and an off the shelf finger splint for protection. After discussion with Dr. Cross, she would like to see the patient back in 3 weeks for possible removal of the distal pin. I re-educated the patient if the pin comes out to not push the pin back in due to risk of infection. He can wash his hands with soap and water, per Dr. Cross, but not submerge or soak the hand. Follow up will be in [address] Cross, or sooner if needed. X-rays of the right hand which were obtained while in the office today and were reviewed by me, Otilia Lai PA-C, revealed no further displacement of the pins and no interruption of the PIP joint of the little finger. Orders: Orders XR hand RT min 3V Today M79.643 - Pain in unspecified hand Patient Instructions: Scribed by Misty Richard, clinical specialist medical device, for Otilia Lai PA-C on at 11:26 am, EST. Coding Level of Care Code Global (34565) Diagnoses Closed mallet fracture of distal phalanx of right little finger S62.636A
== END 2024-01-17 11:50 | disposition home or self-care (01) ==
PROVIDERS: Visit Provider Physician Assistant
DX: S62.636A Displaced fracture of distal phalanx of right little finger, initial encounter for closed fracture (principal)
CPT/HCPCS: 99024

== ENCOUNTER 2024-01-17 11:03 | Outpatient (REF) | payer BC, OTHER, SELFPAY ==
--- NOTE | ~2024-01-17 | XR_ITS ---
EXAMINATION: XR HAND, RIGHT CLINICAL INFORMATION: Pain in right hand. COMPARISON: 12/29/2023, 12/28/2023 and 12/21/2023 images. TECHNIQUE: PA, lateral, and oblique views of the right hand. FINDINGS: Two fixator pins traverse previously demonstrated fracture of the base of the fifth distal phalanx. Hardware appears intact. Diffuse soft tissue swelling. Alignment is satisfactory. XR/XR hand RT min 3V IMPRESSION: Two fixator pins traverse previously demonstrated fracture of the base of the fifth distal phalanx. Hardware appears intact. Diffuse soft tissue swelling. Alignment is satisfactory.
== END 2024-01-17 11:04 | disposition home or self-care (01) ==
LOC: HO.HOSX 11:03
PROVIDERS: Visit Provider Physician Assistant
DX: S62.636D Displaced fracture of distal phalanx of right little finger, subsequent encounter for fracture with routine healing (principal)
CPT/HCPCS: 73130; 99212

== ENCOUNTER 2024-02-02 10:35 | Outpatient (REF) | payer BC, OTHER, SELFPAY ==
--- NOTE | ~2024-02-02 | XR_ITS ---
EXAMINATION: XR HAND, RIGHT CLINICAL INFORMATION: Pain in the hand COMPARISON: Prior x-rays most recent 01/17/2024. TECHNIQUE: PA, lateral, and oblique views of the right hand. FINDINGS: Small finger: Postoperative changes with a single K wire in place. The second K wire has been removed. Alignment unchanged. PIP joint space remains visible and unchanged. Remaining bones joints soft tissues unremarkable. XR/XR hand RT min 3V IMPRESSION: Postoperative changes of the small finger as above. Stable appearance of the joint
== END 2024-02-02 10:36 | disposition home or self-care (01) ==
LOC: HO.HOSX 10:35
PROVIDERS: Visit Provider Physician Assistant
DX: S62.636D Displaced fracture of distal phalanx of right little finger, subsequent encounter for fracture with routine healing (principal); X58.XXXD Exposure to other specified factors, subsequent encounter; Z98.890 Other specified postprocedural states
CPT/HCPCS: 73130; 99212

== ENCOUNTER 2024-02-02 10:35 | Outpatient (AMB) | payer OTHER, SELFPAY ==
--- NOTE | 2024-02-02 11:11 | A.OFFVIS_ITS ---
Intake Visit Reasons: PO LF ORIF 12/29/23 AR-bandage change wound check Intake Note: Naveed is a 33 year old male who presents today for a bandage change for his left ORIF 12/29/23 AR. Allergies amoxicillin [AMOXICILLIN] Allergy (Mild, Verified 01/17/24 11:08) RASH HPI HPI PO LF ORIF 12/29/23 AR-bandage change wound check: Details: 33-year-old male who presents in the office today for a wound check; 1 month status post right small finger closed reduction percutaneous pinning, which was performed on 12/29/[address] Cross. I last saw the patient in the office on 01/17/2024 for a wound check. The distal pin site was redressed with Xeroform, gauze, and an off the shelf finger splint for protection. 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 No surrounding erythema or d rainage. No signs of infection. Sensation intact. Capillary refill is brisk. Assessment & Plan Assessment & Plan (1) Closed mallet fracture of distal phalanx of right little finger: Comment: Right small finger closed reduction percutaneous pinning with and ulnar nerve block 12/29/2023 Dr. Cross Code(s): S62.636A - Displaced fracture of distal phalanx of right little finger, initial encounter for closed fracture Category: Medical Plan Mr. Kearns is a 33-year-old male who presents in the office today for a wound check; 1 month status post right small finger closed reduction percutaneous pinning, which was performed on 12/29/[address] Cross. I last saw the patient in the office on 01/17/2024 for a wound check. The distal pin site was redressed with Xeroform, gauze, and an off the shelf finger splint for protection. The case was discussed with Dr. Cross who was available to speak with me but not available to see the patient; a collaborative treatment plan was made. The patient?s pin site was redressed in the office today with Xeroform, Kerlix, and Coban. I would like to see him back in the office in one week, which would bring the patient to 6 weeks status post pin placement. Follow up will be in 1 week with anticipation of repeat x-rays and possible pin removal, or sooner if needed. X-rays of the right hand which were obtained while in the office today and were reviewed by me, Otilia Lai PA-C, revealed intact pin site with no displacement of the pin. Patient Instructions: Scribed by Hailey Morales medical laboratory technical officer, for Otilia Lai PA-C on 02/02/2024 at 11:00 a.m. EST. Correction were made by Misty Richard medical laboratory technical officer, on 02/02/2024 at 4:26 pm. Coding Level of Care Code Global (52710) Diagnoses Closed mallet fracture of distal phalanx of right little finger S62.636A
== END 2024-02-02 11:40 | disposition home or self-care (01) ==
LOC: HO.HOS 10:35
PROVIDERS: Visit Provider Physician Assistant
DX: S62.636A Displaced fracture of distal phalanx of right little finger, initial encounter for closed fracture (principal)
CPT/HCPCS: 99024

== ENCOUNTER 2024-02-09 09:14 | Outpatient (REF) | payer BC, OTHER, SELFPAY ==
--- NOTE | ~2024-02-09 | XR_ITS ---
EXAMINATION: XR HAND, RIGHT CLINICAL INFORMATION: Pain. COMPARISON: X-ray 02/02/2024. TECHNIQUE: PA, lateral, and oblique views of the right hand. FINDINGS: Postoperative changes with a single K wire extending across the fifth DIP joint. Stable alignment. Calcification/ossification along the dorsal aspect of the DIP joint, similar to previous. DIP joint space remains visible. No acute findings in the remainder the visualized bones. XR/XR hand RT min 3V IMPRESSION: Postoperative changes of the fifth digit, detailed above.
== END 2024-02-09 09:15 | disposition home or self-care (01) ==
LOC: HO.HOSX 09:14
PROVIDERS: Visit Provider Physician Assistant
DX: S62.636D Displaced fracture of distal phalanx of right little finger, subsequent encounter for fracture with routine healing (principal)
CPT/HCPCS: 73130; 99212

== ENCOUNTER 2024-02-09 09:52 | Outpatient (AMB) | payer OTHER, SELFPAY ==
--- NOTE | 2024-02-09 10:02 | MHC.OFFVIS ---
Intake Visit Reasons: PO little finger ORIF 12/29/23 AR Intake Note: Naveed is a 33 year old right hand dominant male who presents today for a post op appointment for his right little finger ORIF 12/29/23 AR. Patient reports he is doing well, states he has no pain. Allergies amoxicillin [AMOXICILLIN] Allergy (Mild, Verified 02/09/24 10:10) RASH HPI HPI PO little finger ORIF 12/29/23 AR: Details: 33-year-old right hand dominant male who returns to the office today for post-op right small finger ORIF, 12/29/[address] Cross. He states he has no pain and is doing well overall. He has no concerns today. 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 No drainage, redness, or swelling. He has full sensation. He has 90 degrees at MCP and has some stiffness at PIP and DIP. Results Reviewed Results Reviewed: X-rays of the right hand obtained in the office today show K wire pin intact with interval healing of the bony fragment along the PIP. Assessment & Plan Assessment & Plan (1) Closed mallet fracture of distal phalanx of right little finger: Comment: Right small finger closed reduction percutaneous pinning with and ulnar nerve block 12/29/2023 Dr. Cross Code(s): S62.636A - Displaced fracture of distal phalanx of right little finger, initial encounter for closed fracture Category: Medical Plan Pin was removed without complications. The area was cleaned and bandage applied. He will begin working on some gentle ROM and an order for occupational therapy was placed in the office today. He will return in [address] Cross for a ROM check, sooner if needed. Orders: Orders OT Evaluation and Treatment Today S62.636A - Displaced fracture of distal phalanx of right little finger, initial encounter for closed fracture XR hand RT min 3V Today M79.641 - Pain in right hand Patient Instructions: Scribed for Ta-Freda Meuse, PA-C, by Christ Newby outside medical sales representative, on 02/09/2024 at 10:30 AM EST.? I, Jim Benavidez PA-C, have personally reviewed and agree with the information entered by the scribe. Coding Level of Care Code Global (70216) Diagnoses Closed mallet fracture of distal phalanx of right little finger S62.636A
== END 2024-02-09 10:46 | disposition home or self-care (01) ==
LOC: HO.HOS 09:52
PROVIDERS: Visit Provider Physician Assistant
DX: S62.636A Displaced fracture of distal phalanx of right little finger, initial encounter for closed fracture (principal)
CPT/HCPCS: 99024

== ENCOUNTER 2024-02-22 09:22 | Outpatient (REF) | payer OTHER, SELFPAY | END 2024-02-22 09:23 | disposition home or self-care (01) | LOC: HO.HOSX 09:22 | PROVIDERS: Visit Provider Orthopaedic Surgery | DX: Z13.89 Encounter for screening for other disorder (principal) ==

== ENCOUNTER 2024-03-06 10:51 | Outpatient (REF) | payer OTHER, SELFPAY | END 2024-03-06 10:52 | disposition home or self-care (01) | LOC: HO.HOSX 10:51 | PROVIDERS: Visit Provider Orthopaedic Surgery | DX: Z13.89 Encounter for screening for other disorder (principal) ==

== ENCOUNTER 2024-03-07 13:01 | Outpatient (REF) | payer OTHER, SELFPAY ==
--- NOTE | ~2024-03-07 | XR_ITS ---
EXAMINATION: XR HAND, RIGHT CLINICAL INFORMATION: Pain in right hand. COMPARISON: 02/09/2024. TECHNIQUE: 3 views of the right hand. FINDINGS: Interval removal of previously noted K-wire extending across the DIP joint of the fifth digit. Alignment is stable. Similar calcification/ossification along the dorsal aspect of the fifth DIP joint. Fifth DIP joint is still visible. XR/XR hand RT min 3V IMPRESSION: Interval removal of K-wire extending across the DIP joint of the fifth digit. Alignment is stable. Similar calcification/ossification along the dorsal aspect of the fifth DIP joint.
== END 2024-03-07 13:02 | disposition home or self-care (01) ==
LOC: HO.HOSX 13:01
PROVIDERS: Visit Provider Orthopaedic Surgery
DX: M79.641 Pain in right hand (principal); S62.636D Displaced fracture of distal phalanx of right little finger, subsequent encounter for fracture with routine healing; X58.XXXD Exposure to other specified factors, subsequent encounter; Z98.890 Other specified postprocedural states
CPT/HCPCS: 73130; 99212

== ENCOUNTER 2024-03-07 13:01 | Outpatient (AMB) | payer OTHER, SELFPAY ==
--- NOTE | 2024-03-07 13:03 | MHC.OFFVIS ---
Vital Signs 03/07/24 13:14 Height 6 ft 1 in Weight 200 lb BMI 26.4 Handedness Right Intake Visit Reasons: PO little finger ORIF 12/29/23 AR Intake Note: Naveed is a 33 year old right hand dominant male who presents today for a post op appointment for his right little finger ORIF ROM from DOS 12/29/23 AR. Patient reports stiffness and tightness in the DIP and PIP joint of his little finger. He expresses he just started OT and so far it is going well. Allergies amoxicillin [AMOXICILLIN] Allergy (Mild, Verified 03/07/24 13:14) RASH HPI HPI PO little finger ORIF 12/29/23 AR: Details: Naveed is a 33 year old right hand dominant man who presents S/P right small finger distal phalanx CRPP, DOS: 12/29/23. His pin was removed last visit in he has been working on range of motion. He says he has been working on ROM at home. He has his first OT appointment tomorrow. 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 Review of Systems Const All systems reviewed & are unremarkable except as noted in HPI and below Physical Exam Const General: no acute distress and alert Orientation/consciousness: patient oriented x3 Neuro General: patient oriented x3 Extrem Other: Evaluation of Right Upper Extremity: The patient is alert, oriented, and in no acute distress Neuro: Median, Ulnar, Radial nerves motor and sensory intact and sensation is normal to the tips of all digits Vascular: Cap refill brisk ROM: He can make a tight fist and extend all his digits He has perhaps a 3 degree extension lag of the small finger, and can actively flex at the small finger DIP joint to at least 60 degrees. No pain with range of motion Radiographs: 3 views of the right hand, with attention to the small finger, were taken and viewed by me today in clinic. They show a small finger distal phalanx fracture with satisfactory fracture alignment and good evidence of interval bony healing. Psych Appearance: grossly normal Affect: normal affect Attitude: cooperative Assessment & Plan Assessment & Plan (1) Closed mallet fracture of distal phalanx of right little finger: Comment: Right small finger closed reduction percutaneous pinning with and ulnar nerve block 12/29/2023 Dr. Cross Code(s): S62.636A - Displaced fracture of distal phalanx of right little finger, initial encounter for closed fracture Category: Medical Plan Assessment & Plan: 1. Right small finger dorsal distal phalanx base fracture, with mallet deformity S/P CRPP, DOS: 12/29/23 K-wires removed: 01/07/24 & 02/09/24 The patient appears to be doing well post-operatively He now has nearly full range of motion. He should continue to work on ROM exercises at home, and is scheduled to begin OT hand therapy tomorrow, 03/08/24. He can be released to all duties as tolerated. He will follow up prn Scribed for Yazmin Cross MD by leonardo Tatum scribe, on 03/07/24 at 1:35 PM, EST. Orders: Orders XR hand RT min 3V 02/22/24 M79.641 - Pain in right hand XR hand RT min 3V Today M79.641 - Pain in right hand Scribe Plan - Not visible on output: Scribed for Yazmin Cross MD by Zion Cruz biomedical equipment support specialist, on [ ] at [ ], EST. Coding Level of Care Code Global (81387) Diagnoses Closed mallet fracture of distal phalanx of right little finger S62.636A
[2024-03-07 13:14] VITALS: BMI 26.4
== END 2024-03-07 13:36 | disposition home or self-care (01) ==
PROVIDERS: Visit Provider Orthopaedic Surgery
DX: S62.636A Displaced fracture of distal phalanx of right little finger, initial encounter for closed fracture (principal)
CPT/HCPCS: 99024

== ENCOUNTER 2024-03-16 11:30 | Outpatient (RCR) | payer BC, OTHER, SELFPAY ==
--- NOTE | 2024-02-20 14:42 | MHC.OT.EP ---
[address] [phone] Occupational Therapy Plan of Care Patient Name: Naveed Montero Date of Evaluation: 02/20/24 Diagnosis: S/P ORIF DISTAL PHALANX OF R SF Pain Location: PAINFREE AT REST PIPj WITH USE 1/10 Pain Score: 0-1/10 Pain Scale Used: Numeric (0 - 10) Aggravating Factors: GRIPPING Alleviating Factors: ICING, IBUPROFEN PRN Assessment: MR MONTERO IS 7 WEEKS POST OP DISTAL PHALANX REPAIR OF RIGHT SMALL FINGER. HE HAD PIN REMOVED ON 02/09/24. HE REPORTS A 9% LIMITATION PER THE QUICK DASH ASSESSMENT. 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 HE DENIES DIFFICULTIES PERFORMING WORK RELATED TASKS. HIS GOAL IS TO IMPROVE HIS ROM AND DECREASE PAIN. WILL CONT TO FOLLOW TO ADDRESS THE AREAS MENTIONED BELOW. Frequency and Duration: The patient will be seen 1X/WEEK FOR 4 WEEKS Short Term Goals: SEE BELOW Shelter Goals: IND HEP WEAN FROM ORTHOSIS REPORT MOSTLY PAINFREE WITH IADLs, LIFTING >20 POUNDS IND EDEMA MANAGEMENT STRATEGIES Treatment Plan: Therapeutic Exercise Therapeutic Activity Home Exercise Program Splinting Neuro Re-ed Patient Education Desensitization/Sensory Re-ed Edema Control ADL Training Ultrasound NMES Iontophoresis Paraffin Fluidotherapy MHP Cold Packs Joint Mobilization Soft Tissue Mobilization Kinesiotaping Other (see comments) Electronically Signed By: EMILI GARCIA OTR/L Please Sign and return to therapist. Thank you once again for your referral.
--- NOTE | 2024-04-06 07:50 | MHC.OT.DC ---
[address] [phone] F: [phone] Occupational Therapy Discharge Note Patient Name: Naveed Kearns Provider: Jim Benavidez Diagnosis: S/P ORIF DISTAL PHALANX OF R SF Date of Surgery: 12/29/23 Date of Evaluation: 02/20/24 Date of Discharge: Treatments to Date: 3 Cancellations to Date: 2 No Shows to Date: 0 Discharge Status: Improved Function Independent with HEP Discharge Summary: MR KEARNS WAS DOING WELL WITH HIS OT TREATMENT SESSIONS, AND MAKING STEADY GAINS. HE WILL BE DISCHARGED TO A HOME BASED PROGRAM AT THIS TIME. D/C OT SERVICES. Electronically Signed By: EMILI GARCIA OTR/Emily Reviewed/agree with student documentation: N/A Therapist: Please Sign and return to therapist, thank you for your referral.
== END 2024-04-06 07:50 | disposition home or self-care (01) ==
LOC: HO.OT 11:30
PROVIDERS: Visit Provider Physician Assistant
DX: S62.636D Displaced fracture of distal phalanx of right little finger, subsequent encounter for fracture with routine healing (principal)
CPT/HCPCS: 97110; 97165

== ENCOUNTER 2024-04-02 01:10 | Emergency (ER) | payer BC, MEDICAID, SELFPAY ==
--- NOTE | ~2024-04-02 | XR_ITS ---
EXAMINATION: XR FOREARM, RIGHT CLINICAL INFORMATION: Concern for foreign body COMPARISON: None available. TECHNIQUE: AP and lateral views of the right forearm were obtained. FINDINGS: The bone mineralization is normal. No fracture is seen. Joint spaces are maintained. There are small faintly radiopaque densities along the proximal anterior forearm possibly calcification measuring up to 4 mm XR/XR forearm RT 2V IMPRESSION: 1. Small faintly radiopaque densities along the proximal anterior forearm possibly calcification measuring up to 4 mm. Correlation with site of injury needed as foreign bodies also a possibility. 2. No fracture is seen.
[2024-04-02 01:20] VITALS: BP 150/101; PULSE 81; RESP 18; TEMP 36.5; O2SAT 98; BMI 26.4
[2024-04-02 02:00] VITALS: BP 131/92; PULSE 71; RESP 16; TEMP 36.9; O2SAT 98
--- NOTE | 2024-04-02 02:24 | ED.WOUNDLAC ---
HPI - Wound/Laceration General Chief Complaint: Wound/Laceration Stated Complaint: arm lac, put had through a window Time Seen by Provider: 04/02/24 02:19 Source: patient Mode of arrival: ambulatory Limitations: no limitations History of Present Illness ED Provider: Dr. Kanika Vega HPI narrative: Patient comes to the emergency room complaining of a laceration to the right forearm. Patient states that he was at work, in a stressful situation, patient punched a glass window. Patient denies injuries anywhere else. Related Data Home Medications ?Medication ?Instructions ?Recorded ?Confirmed albuterol sulfate 90 mcg/actuation 2 puff inhalation Q6H PRN wheezing 12/21/23 12/22/23 aerosol inhaler (Ventolin HFA) fluticasone 250 mcg-salmeterol 50 1 ea inhalation BID 12/21/23 12/22/23 mcg/dose blistr powdr for inhalation (Advair Diskus) ibuprofen 600 mg tablet 600 mg PO TID PRN moderate pain 01/11/24 Allergies Allergy/AdvReac Type Severity Reaction Status Date / Time amoxicillin [AMOXICILLIN] Allergy Mild RASH Verified 04/02/24 01:21 Review of Systems Review of Systems: Constitutional : No Weight loss, No Fever, No Chills, No Night Sweats, No Fatigue, No Malaise ENT/Mouth : No Hearing loss, No Ear Pain, No Nasal Congestion, No Sinus Pain, No Hoarseness, No sore throat, No Rhinorrhea, No Swallowing Difficulty Eyes: No Eye Pain, No Swelling, No Redness, No Foreign Body, No Discharge, No Vision Changes Cardiovascular : No Chest Pain, No SOB, No Dyspnea on Exertion, No Orthopnea, No Edema, No Palpitations Respiratory : No Cough, No Sputum, No Wheezing, No Smoke Exposure, No Dyspnea Gastrointestinal : No Nausea, No Vomiting, No Diarrhea, No Constipation, No abdominal Pain, No Hematochezia, No Melena Genitourinary : no irregular bleeding, No Dysuria, No Urinary Frequency, No Hematuria, No Urinary Incontinence, No Urgency, No Flank Pain, No Urinary Flow Changes, No Hesitancy Musculoskeletal : No joint pain, No Myalgias, No Joint Swelling Skin : Laceration to the right forearm Neuro : No Weakness, No Numbness, No Paresthesias, No Loss of Consciousness, No Dizziness, No Headache Psych : No Anxiety/Panic, No Depression, No SI/HI/AH/VH, No Social Issues, Heme/Lymph: No Bruising, No Bleeding,No Lymphadenopathy Endocrine : No Polyuria, No Polydipsia, No Temperature Intolerance [facility] Past Medical History Medical History Jaw cyst Social History Social History Patient Tobacco Use Status: Never used Tobacco Advance Directives: No Advance Directives Information Provided: No Do you have a plan to hurt others: No Plan Current occupational status: employed 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 Oriented X3. No acute distress. Eyes: Pupils equal, round and reactive to light. ENT: Pharynx normal. Neck: Normal inspection. Neck supple. No lymph nodes noted. No crepitus CVS: Normal heart rate and rhythm. Pulses normal. Normal S1 and S2 Respiratory: No respiratory distress. Breath sounds normal. No Wheezing. No rales Abdomen: Soft and nontender. No rigidity. No distention. Skin: Skin warm and dry. In the forearm there is a 4 cm laceration, bleeding controlled. Patient has multiple smaller abrasions, skin flaps and smaller laceration throughout the forearm that do not require stitches or zaida Extremities: No lower extremity edema. No Lacerations. No Rash. Patient is able to flex and extend all fingers in the hand, move the wrist with normal range of motion, oppose the thumb. Neuro: Oriented X 3. No motor deficit. No sensory deficit. Moving all extremities. No slurred speech. CN 2 through 12 grossly intact Psych: calm, cooperative, normal affect Medical Decision Making Medical Decision Making MDM Narrative: -my interpretation of x-ray, there are superficial pieces of glass. -= before the wound closure, wounds were thoroughly rinsed and all foreign bodies were removed. Most of the glass that was seen on the x-ray was actually on top of the skin rather than inside of the wound. The wound was stapled -patient tolerated well the procedure -patient states he is up-to-date with his Tdap -patient instructed to follow-up with his PCP, urgent care or ER for staple removal in 7-10 days. -a Surgicel was applied to the largest abrasion Independent Interpretation I performed an independent interpretation of an: Plain X-Ray Radiology Impression Discussion of test interpretation with radiology: I have reviewed the radiologist's reading. Radiologist Impression: FINDINGS: The bone mineralization is normal. No fracture is seen. Joint spaces are maintained. There are small faintly radiopaque densities along the proximal anterior forearm possibly calcification measuring up to 4 mm XR/XR forearm RT 2V IMPRESSION: 1. Small faintly radiopaque densities along the proximal anterior forearm possibly calcification measuring up to 4 mm. Correlation with site of injury needed as foreign bodies also a possibility. 2. No fracture is seen. Procedures Laceration Laceration 1: Site: upper extremity Side (If applicable): right Size (cm): 4 Description: linear Depth: simple, single layer Local Anesthetic: lidocaine 2% Amount of anesthesia used (mL): 6 Pre-repair: wound explored Skin layer closed with: other (Staple) Size (cm): other (Zaida) Number of sutures: 7 Discharge Plan Discharge Clinical Impression: Laceration, Abrasion Patient Disposition: Home, Self-Care Instructions: Staple Care (ED), Laceration (ED) Additional Instructions: Please follow-up with your primary care physician tomorrow. If you have any worsening or new symptoms, please return to the emergency room or call 911 Prescriptions: No Action ibuprofen 600 mg tablet 600 mg PO TID PRN (Reason: moderate pain) fluticasone propion-salmeterol [Advair Diskus] 250-50 mcg/dose blister with device 1 ea inhalation BID albuterol sulfate [Ventolin HFA] 90 mcg/actuation HFA aerosol inhaler 2 puff inhalation Q6H PRN (Reason: wheezing) Print Language: Syriac
[2024-04-02] MEDS: Lidocaine HCl 2 % MPF 5 ML VIAL 10 ML INFILTRATI (03:15)
[2024-04-02] MEDS: Ibuprofen 600 MG TABLET PO (03:25)
[2024-04-02 04:42] VITALS: BP 131/92; PULSE 71; RESP 16; TEMP 36.9; O2SAT 98
== END 2024-04-02 03:27 | disposition home or self-care (01) ==
PROVIDERS: Emergency Provider Emergency Medicine
DX: S41.111A Laceration without foreign body of right upper arm, initial encounter (principal); S40.811A Abrasion of right upper arm, initial encounter; M79.601 Pain in right arm; X58.XXXA Exposure to other specified factors, initial encounter; W25.XXXA Contact with sharp glass, initial encounter; Y93.9 Activity, unspecified; Y92.89 Other specified places as the place of occurrence of the external cause; Y99.0 Civilian activity done for income or pay
CPT/HCPCS: 12002; 73090; 99284

== ENCOUNTER 2024-04-08 23:09 | Emergency (ER) | payer OTHER, SELFPAY ==
[2024-04-08 23:13] VITALS: BP 138/78; PULSE 60; RESP 18; TEMP 36.6; O2SAT 97; BMI 26.5
--- NOTE | 2024-04-08 23:16 | ED.RECABL ---
HPI - Recheck/Abnormal Lab/Rx General Chief Complaint: General Medical Stated Complaint: [place] Removal rt arm Time Seen by Provider: 04/08/24 23:15 Source: patient and old records reviewed Mode of arrival: ambulatory Limitations: no limitations History of Present Illness ED Provider: JENN TAN narrative: 34 yo male s/p zaida on 04/02 R arm doing well mild redness no fevers MD complaint: suture/staple removal Initial visit (ago): day(s) (04/02) Initial visit for: laceration Returns today for: staple/stitch removal Symptoms since prior visit: no new symptoms Context: planned re-check Associated symptoms: rash Related Data Home Medications ?Medication ?Instructions ?Recorded ?Confirmed albuterol sulfate 90 mcg/actuation 2 puff inhalation Q6H PRN wheezing 12/21/23 12/22/23 aerosol inhaler (Ventolin HFA) fluticasone 250 mcg-salmeterol 50 1 ea inhalation BID 12/21/23 12/22/23 mcg/dose blistr powdr for inhalation (Advair Diskus) ibuprofen 600 mg tablet 600 mg PO TID PRN moderate pain 01/11/24 Previous Rx's ?Medication ?Instructions ?Recorded mupirocin 2 % topical ointment 1 appl topical BID 7 days #15 grams 04/08/24 Allergies Allergy/AdvReac Type Severity Reaction Status Date / Time amoxicillin [AMOXICILLIN] Allergy Mild RASH Verified 04/08/24 23:14 Review of Systems Review of Systems: Constitutional : No Fever, No Chills, Cardiovascular : No Chest Pain, No SOB Respiratory : No Dyspnea Gastrointestinal : No abdominal pain Musculoskeletal : No Joint Swelling Skin : No rash Neuro : No Weakness, No Numbness Psych : No SI/HI PMFSH Past Medical History Attestation statement: The following information was validated with the patient. 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 Oriented X3. No acute distress. Eyes: Pupils equal, round and reactive to light. ENT: Pharynx normal. Neck: Normal inspection. CVS: Pulses normal. Respiratory: No respiratory distress. Abdomen: atraumatic Skin: Skin warm and dry. Normal skin color. Extremities: No lower extremity edema. R arm mild erythema no swelling no purulence no fluctuance well healed approximated laceration [address] Neuro: Oriented X 3. No motor deficit. No sensory deficit. Medical Decision Making Medical Decision Making MDM Narrative: 34 yo male with recent laceratio s/p zaida well healing mild redness from irritation from zaida will remove and place on mupirocin with precautions to return Differential Diagnosis Differential Diagnoses: The differential diagnosis associated with the presentation includes irritation, staple removal External Record Review External record reviewed: Inpatient record Prescription Management I considered prescription management with: Other Procedures Procedure Narrative Procedure Narrative: 7 zaida removed no issue wound approximated Discharge Plan Discharge Clinical Impression: Encounter for removal of zaida Patient Disposition: Home, Self-Care Instructions: Acute Wounds (ED) Additional Instructions: monitor for any increased redness, fevers, swelling or any other concerns redness appears to be irritation from zaida use ointment for 5 days Prescriptions: New mupirocin 2 % ointment 1 appl topical BID 7 Days Qty: 15 0RF No Action ibuprofen 600 mg tablet 600 mg PO TID PRN (Reason: moderate pain) fluticasone propion-salmeterol [Advair Diskus] 250-50 mcg/dose blister with device 1 ea inhalation BID albuterol sulfate [Ventolin HFA] 90 mcg/actuation HFA aerosol inhaler 2 puff inhalation Q6H PRN (Reason: wheezing) Print Language: Hungarian
[2024-04-08 23:38] VITALS: BP 138/78; PULSE 60; RESP 18; TEMP 36.6; O2SAT 97
== END 2024-04-08 23:24 | disposition home or self-care (01) ==
LOC: HO.ED 23:25
PROVIDERS: Emergency Provider Emergency Medicine
DX: Z48.02 Encounter for removal of sutures (principal)
CPT/HCPCS: 99282